=== PATIENT | male | born 1955 | race Caucasian/White ===

== ENCOUNTER → 2016-08-06 | Outpatient (CLI) | payer BC, OTHER ==
[~2016-08-06] MED LIST: ASCA500 PO; ASPEC325 PO; BNC/20125 PO; GLC500 PO; LEVO150T48 PO; LEVO175T23 PO; MULT-506 PO; SIMV20TA2 PO
== END | disposition home or self-care (01) ==
LOC: C.CPL 16:56
PROVIDERS: ATTEND Orthopaedic Surgery Sports Medicine
DX: Z01.810 Encounter for preprocedural cardiovascular examination (principal)

== ENCOUNTER 2019-08-25 01:01 | Inpatient (IN) ==
[2019-08-25] MEDS ORDERED: SODIUM CHLORIDE 0.9% 1000ML 1,000 ML IV SCH (01:15)
[2019-08-25 01:35] LABS: Basophils # (auto) 0.01 K/uL (0-0.2); Basophils % (auto) 0.1 %; Eosinophils # (auto) 0.27 K/uL (0-0.5); Hematocrit (blood only) 35.2 % (42-52); Hemoglobin 11.9 g/dL (14.0-18.0); Immature Granulocytes # (auto) 0.01 K/uL (0.00-0.02); Immature Granulocytes % (auto) 0.1 %; Lymphocytes # (auto) 2.48 K/uL (1.2-3.4); Lymphocytes % (auto) 36.7 %; Mean Corpuscular Hemoglobin 29.2 pg (25-34); Mean Corpuscular Hgb Conc 33.8 g/dL (32-36); Mean Corpuscular Volume 86.5 fL (80-100); Mean Platelet Volume 9.7 fL (7.4-10.4); Monocytes # (auto) 0.52 K/uL (0.11-0.59); Monocytes % (auto) 7.7 %; Neutrophils # (auto) 3.46 K/uL (1.4-6.5); Neutrophils % (auto) 51.4 %; Platelet Count 215 K/uL (130-400); RDW Coefficient of Variation 13.1 % (11.5-14.5); RDW Standard Deviation 41.5 fL (36.4-46.3); Red Blood Count 4.07 M/uL (4.7-6.1); White Blood Count 6.75 K/uL (4.8-10.8)
[2019-08-25 01:56] LABS: Alanine Aminotransferase 23 U/L (12-78); Albumin Level 3.3 gm/dl (3.4-5.0); Aspartate Aminotransferase 11 U/L (15-37); BUN Creatinine Ratio 19.6 (10-20); Blood Urea Nitrogen 21 mg/dl (7-18); Calcium 8.4 mg/dl (8.5-10.1); Carbon Dioxide 28 mmol/L (21-32); Chloride 105 mmol/L (98-107); Creatinine Clr Calc Pharmacy 87.7 ml/min; Est GFR (African American) 84.3; Est GFR (Non-African American) 72.8; Glucose 148 mg/dl (70-99); Lipase 126 U/L (73-393); Magnesium 1.9 mg/dl (1.8-2.4); Potassium 3.3 mmol/L (3.5-5.1); Sodium 138 mmol/L (136-145)
[2019-08-25 02:07] LABS: Albumin Globulin Ratio 1.1 (0.9-2); Alkaline Phosphatase 59 U/L (45-117); Bilirubin,Total 0.5 mg/dl (0.2-1); Globulin 2.9 gm/dl (2.5-4.0); Total Protein 6.2 gm/dl (6.4-8.2); Troponin I < 0.015 ng/ml (0-0.045)
[2019-08-25] MEDS ORDERED: PANTOprazole 80 MG in DEXTROSE 5% 100 ML IV ONE (03:45)
[2019-08-25] MEDS ORDERED: PANTOprazole 40 MG in DEXTROSE 5% 100 ML IV SCH ×2 (04:00→10:00)
[2019-08-25 04:26] LABS: Appearance Urine Clear (Clear); Bilirubin Urine Negative (Negative); Blood Urine Negative (Negative); Color Urine Yellow; Glucose Urine UA Negative (Negative); Ketones Urine Negative (Negative); Leukocyte Esterase Urine Negative (Negative); Nitrite Urine Negative (Negative); Protein Urine Negative (Negative); Specific Gravity Urine 1.022 (1.000-1.030); Urobilinogen Urine Negative (Negative); pH Urine 5.5 (4.5-7.5)
--- NOTE | 2019-08-25 04:47 | Emergency Department Note ---
Entered by Karol Forrester acting as a scribe for Tami Eagle DO History of Present Illness General Chief complaint: Syncope Stated complaint: SYNCOPE Time Seen by Provider: 08/25/19 01:03 Source: patient Mode of arrival: EMS History of Present Illness Provider complaint: syncope Onset (ago): hour(s) 2 Location: head Pain Consistency: + other (episodes) Relieved By: + none Exacerbated By: + none Associated symptoms: + diaphoresis and + other (+diarrhea) The patient is a 64 year old male who presents to the Emergency Room with complaints of two consecutive syncopal episodes tonight at 2330. The patient notes that he felt fine throughout the day. He states that he had an episode of diarrhea tonight and when he got up he was diaphoretic. He notes that he walked to his bed and fell. He reports that he had another episode shortly after he got up. The patient notes that he hit his head during his first episode. He mentions that he has been experiencing diarrhea for the past several days. He mentions that his diarrhea is dark. The patient states that he had a recent colonoscopy which was normal. He mentions that he has a history of diabetes, hypertension, and hypothyroidism. He notes that he takes Metformin. He denies being on any blood thinners. Home Medications Home Medications Medication Instructions Recorded Confirmed Type amlodipine 10 mg PO DAILY 08/25/19 08/25/19 History ascorbic acid (vitamin C) 1 g PO DAILY 08/25/19 08/25/19 History aspirin 81 mg PO DAILY 08/25/19 08/25/19 History atorvastatin 40 mg PO DAILY 08/25/19 08/25/19 History calcium carbonate-vitamin D3 1 cap PO DAILY 08/25/19 08/25/19 History [Calcium 600 + D(3)] ibuprofen 600 mg PO Q6H PRN 08/25/19 08/25/19 History levothyroxine [Levoxyl] 175 mcg PO DAILY 08/25/19 08/25/19 History losartan-hydrochlorothiazide 1 tab PO DAILY 08/25/19 08/25/19 History metformin 1,000 mg PO QPM 08/25/19 08/25/19 History metformin 500 mg PO QAM 08/25/19 08/25/19 History multivitamin 1 tab PO DAILY 08/25/19 08/25/19 History Allergies Allergy/AdvReac Type Severity Reaction Status Date / Time No Known Allergies Allergy Unknown Verified 08/25/19 02:32 Past Med/Surg History Medical History Diabetes Hypertension Hyperthyroidism Social History Preferred Language: Italian Feels Safe at Home: Yes Smoking Status: Never smoker Review of Systems See HPI for pertinent positives & negatives. and A total of 10 systems reviewed and were otherwise negative Physical Exam Vital Signs Vital Signs - 24 hr 08/25/19 01:04 08/25/19 01:13 08/25/19 01:17 Temperature 36.6 C Temperature Source Oral Pulse Rate 86 82 85 Pulse Rate [Finger] Pulse Rate from SpO2 Sensor Pulse Rhythm [Finger] Pulse Strength [Finger] Respiratory Rate 13 11 L 18 Respiratory Effort / Characteristics Respiratory Depth Respiratory Pattern Blood Pressure 125/71 125/71 Blood Pressure [Right Arm] Blood Pressure Mean 79 89 Blood Pressure Mean [Right Arm] Blood Pressure Position [Right Arm] Pulse Oximetry 96 Oxygen Delivery Method Room Air Sepsis Recent Fever Within 48 Hours No Sepsis New/Unexplained Change in Mental Status No Sepsis Action Taken by Nursing No Action Required 08/25/19 01:20 08/25/19 01:30 08/25/19 01:41 Temperature Temperature Source Pulse Rate 83 87 90 Pulse Rate [Finger] Pulse Rate from SpO2 Sensor 83 87 87 Pulse Rhythm [Finger] Pulse Strength [Finger] Respiratory Rate 11 L 11 L 16 Respiratory Effort / Characteristics Respiratory Depth Respiratory Pattern Blood Pressure 111/72 Blood Pressure [Right Arm] Blood Pressure Mean 81 Blood Pressure Mean [Right Arm] Blood Pressure Position [Right Arm] Pulse Oximetry 95 95 97 Oxygen Delivery Method Sepsis Recent Fever Within 48 Hours Sepsis New/Unexplained Change in Mental Status Sepsis Action Taken by Nursing 08/25/19 01:50 08/25/19 02:00 08/25/19 02:10 Temperature Temperature Source Pulse Rate 88 92 H 91 H Pulse Rate [Finger] Pulse Rate from SpO2 Sensor 87 93 H 90 Pulse Rhythm [Finger] Pulse Strength [Finger] Respiratory Rate 14 13 13 Respiratory Effort / Characteristics Respiratory Depth Respiratory Pattern Blood Pressure 135/80 Blood Pressure [Right Arm] Blood Pressure Mean 91 Blood Pressure Mean [Right Arm] Blood Pressure Position [Right Arm] Pulse Oximetry 95 95 96 Oxygen Delivery Method Sepsis Recent Fever Within 48 Hours Sepsis New/Unexplained Change in Mental Status Sepsis Action Taken by Nursing 08/25/19 02:20 08/25/19 03:30 Temperature Temperature Source Pulse Rate 93 H Pulse Rate [Finger] 91 H Pulse Rate from SpO2 Sensor 93 H Pulse Rhythm [Finger] Regular Pulse Strength [Finger] Normal Respiratory Rate 21 18 Respiratory Effort / Characteristics Non-Labored Spontaneous Respiratory Depth Normal Respiratory Pattern Regular Blood Pressure Blood Pressure [Right Arm] 111/78 Blood Pressure Mean Blood Pressure Mean [Right Arm] 89 Blood Pressure Position [Right Arm] Lying Pulse Oximetry 95 93 Oxygen Delivery Method Room Air Sepsis Recent Fever Within 48 Hours Sepsis New/Unexplained Change in Mental Status Sepsis Action Taken by Nursing HEENT: Head - normocephalic and atraumatic Pupils are equal, round, and reactive to light. Extraocular eye muscles are intact, and sclera are anicteric. Nose - moist nasal mucosa without discharge. Mouth - moist buccal mucosa. Oropharynx is nonerythematous and there is no tonsillar exudate or edema noted. Neck: Supple; no JVD, nuchal rigidity, cervical lymphadenopathy. Heart: Regular rate and rhythm. There is a normal S1 and S2 with no murmurs, clicks, or gallops appreciated. Lungs: Clear to auscultation bilaterally with no wheezes, rales, or rhonchi. Abdomen: Soft, completely nontender, nondistended, with good bowel sounds. There are no palpable pulsatile masses or hepatosplenomegaly. There is no guarding, rigidity, or rebound noted. Extremities: No evidence of cyanosis, clubbing, or edema. There are easily palpable peripheral pulses. Rectal: Black stool, melena, and bright red blood. Skin: warm and dry with good turgor and no rashes. Course Course 0105: The patient was evaluated in room A11B, and a complete history and physical examination were performed. An order was placed for continuous cardiac monitoring. He was in a normal sinus rhythm at a rate of 88. An IV lock was initiated and labs were drawn as above. A twelve-lead EKG was obtained. 0123: Sodium chloride 1000 mls @ 999 mls/hr IV. 0155: I reevaluated the patient and updated him on some results. I performed a rectal exam on the patient at this time. 0222: I reviewed the results of the rest of the labs with the patient. I reviewed the patient's case with Dr. Isabel [facility] Hospitalist. He will evaluate the patient for further management. Administered Medications Pantoprazole Sodium 40 mg/ (Dextrose) 100 mls @ 20 mls/hr IV Q5H PEDRO Stop: 08/25/19 08:59 Last Admin: 08/25/19 04:16 Dose: 20 mls/hr Documented by: [id number] Discontinued Medications Sodium Chloride (Nss 1000ml) 1,000 mls @ 999 mls/hr IV .Q1H1M PEDRO Stop: 08/25/19 02:15 Last Infusion: 08/25/19 02:59 Dose: 0 mls/hr Documented by: [id number] Admin: 08/25/19 01:23 Dose: 999 mls/hr Documented by: [id number] Pantoprazole Sodium 80 mg/ (Dextrose) 120 mls @ 480 mls/hr IV NOW ONE Stop: 08/25/19 03:59 Last Infusion: 08/25/19 04:15 Dose: 0 mls/hr Documented by: [id number] Admin: 08/25/19 03:58 Dose: 480 mls/hr Documented by: [id number] Medical Decision Making Differential Diagnosis Differential diagnoses include but are not limited to orthostasis, enteritis, food borne illness, dehydration, and cardiac dysrhythmia. Medical Records Attestation: I reviewed the patient's medical records. Home Medications Current Medication List: was personally reviewed by me Laboratory Data Attestation: I reviewed the patient's lab results. Result diagrams: 08/25/19 01:24 08/25/19 01:24 Lab Results 08/25/19 08/25/19 08/25/19 Range/Units 01:24 01:24 03:40 WBC 6.75 (4.8-10.8) K/uL RBC 4.07 L (4.7-6.1) M/uL Hgb 11.9 L (14.0-18.0) g/dL Hct 35.2 L (42-52) % MCV 86.5 (80-100) fL MCH 29.2 (25-34) pg MCHC 33.8 (32-36) g/dL RDW Std Deviation 41.5 (36.4-46.3) fL RDW Coeff of Bruno 13.1 (11.5-14.5) % Plt Count 215 (130-400) K/uL MPV 9.7 (7.4-10.4) fL Immature Gran % (Auto) 0.1 % Neut % (Auto) 51.4 % Lymph % (Auto) 36.7 % [place] % (Auto) 7.7 % Eos % (Auto) 4.0 % Baso % (Auto) 0.1 % Immature Gran # (Auto) 0.01 (0.00-0.02) K/uL Neut # (Auto) 3.46 (1.4-6.5) K/uL Lymph # (Auto) 2.48 (1.2-3.4) K/uL [place] # (Auto) 0.52 (0.11-0.59) K/uL Eos # (Auto) 0.27 (0-0.5) K/uL Baso # (Auto) 0.01 (0-0.2) K/uL Sodium 138 (136-145) mmol/L Potassium 3.3 L (3.5-5.1) mmol/L Chloride 105 (98-107) mmol/L Carbon Dioxide 28 (21-32) mmol/L Anion Gap 5.0 (3-11) BUN 21 H (7-18) mg/dl Creatinine 1.06 (0.6-1.4) mg/dl Est Cr Clr Drug Dosing 87.7 ml/min Est GFR ( Amer) 84.3 Est GFR (Non-Af Amer) 72.8 BUN/Creatinine Ratio 19.6 (10-20) Glucose 148 H (70-99) mg/dl Calcium 8.4 L (8.5-10.1) mg/dl Magnesium 1.9 (1.8-2.4) mg/dl Total Bilirubin 0.5 (0.2-1) mg/dl AST 11 L (15-37) U/L ALT 23 (12-78) U/L Alkaline Phosphatase 59 (45-117) U/L Troponin I < 0.015 (0-0.045) ng/ml Total Protein 6.2 L (6.4-8.2) gm/dl Albumin 3.3 L (3.4-5.0) gm/dl Globulin 2.9 (2.5-4.0) gm/dl Albumin/Globulin Ratio 1.1 (0.9-2) Lipase 126 (73-393) U/L TSH 3.860 (0.300-4.500) uIu/ml Urine Color Yellow Urine Appearance Clear (Clear) Urine pH 5.5 (4.5-7.5) Ur Specific [place] 1.022 (1.000-1.030) Urine Protein Negative (Negative) Urine Glucose (UA) Negative (Negative) Urine Ketones Negative (Negative) Urine Blood Negative (Negative) Urine Nitrite Negative (Negative) Urine Bilirubin Negative (Negative) Urine Urobilinogen Negative (Negative) Ur Leukocyte Esterase Negative (Negative) ECG Data Attestation: I personally reviewed and interpreted this ECG as follows: Indication: + syncope Rate (beats per minute): 82 Rhythm: + normal sinus ECG Intervals/blocks: + Prolonged QT (518) ECG ST segments: + ST depression (lead 1, avl, v3, v4, v5, v6) Comparison ECG Date: from (08/06/16) Change: the following changes noted (significant longer QT and changes in ST depression are new) Blood Pressure Blood Pressure Findings: Elevated blood pressure Blood Pressure Disposition: Referred to patients primary care provider MDM Narrative The patient is a 64 year old male who presents to the Emergency Room with complaints of two consecutive syncopal episodes tonight at 2330. This was thought to be secondary to orthostasis. However, the patient was noted to have GI bleeding. He was having some diarrhea that was black and when I tested his stool there was melena and then bright red blood. Of note, the patient had ST segment depression on his EKG which was a new finding compared to 2017. He also had a prolonged QTC at 518 seconds which was new. I reviewed these findings with the patient and his as well as with the [facility] hospitalist. The patient remained hemodynamically stable while here in the emergency department. He has no previous cardiac history. He has had previous colonoscopies with a history of diverticulosis but no previous history of diverticulitis. Impression & Plan Syncope, GI bleed, Acute electrocardiography changes Discharge Plan Visit Data Chief Complaint: Syncope Stated Complaint: SYNCOPE ED Provider: Tami Eagle Discharge Problem: Syncope, GI bleed, Acute electrocardiography changes Patient Disposition: Being Evaluated by Hospitalist Forms Stand Alone Forms: My [facility] [place] [facility] Prescriptions Prescriptions: No Action atorvastatin 40 mg tablet 40 mg PO DAILY RF: 0 levothyroxine [Levoxyl] 175 mcg tablet 175 mcg PO DAILY RF: 0 amlodipine 10 mg tablet 10 mg PO DAILY RF: 0 losartan-hydrochlorothiazide 50-12.5 mg tablet 1 tab PO DAILY RF: 0 multivitamin Tablet 1 tab PO DAILY RF: 0 ascorbic acid (vitamin C) 1,000 mg Tablet 1 g PO DAILY RF: 0 aspirin 81 mg Tablet,Delayed Release (Dr/Ec) 81 mg PO DAILY RF: 0 ibuprofen 600 mg Tablet 600 mg PO Q6H PRN (Reason: Pain) RF: 0 metformin 500 mg tablet extended release 24 hr 1,000 mg PO QPM RF: 0 metformin 500 mg tablet extended release 24 hr 500 mg PO QAM RF: 0 Calcium 600 + D(3) 600 mg calcium- 200 unit Capsule 1 cap PO DAILY RF: 0 Referrals Referrals: La Hernandez DO [Primary Care Provider] - Discharge Problem: Syncope Qualifiers: Syncope type: unspecified Qualified Code(s): R55 - Syncope and collapse GI bleed Qualifiers: GI bleed type/associated pathology: unspecified gastrointestinal hemorrhage type Qualified Code(s): K92.2 - Gastrointestinal hemorrhage, unspecified The scribe's documentation has been prepared under my direction and personally reviewed by me in its entirety. I confirm that the note above accurately reflects all work, treatment, procedures, and medical decision making performed by me.
[2019-08-25] MEDS ORDERED: POTASSIUM CHLORIDE 20 MEQ/15 ML UDC PO STA (06:42)
[2019-08-25] MEDS ORDERED: NITROGLYCERIN SL 0.4 MG/TAB TAB SL PRN (06:42)
[2019-08-25] MEDS ORDERED: POTASSIUM CHLORIDE 20 MEQ TABCR PO STA (07:50)
--- NOTE | 2019-08-25 07:58 | History and Physical Report ---
DATE OF ADMISSION: 08/25/2019 CHIEF COMPLAINT: Melena and syncope. HISTORY OF PRESENT ILLNESS: A 64-year-old male with past medical history significant for type 2 diabetes, hypothyroidism, hyperlipidemia, testicular function, hypertension, obesity, arthritis of the knee on the left side, presents with melena and syncope. The patient states since Friday evening, he had a few of episodes of diarrhea with black stools. He thought it could be from the food related. His thought that he ate outside that could be food poisoning, but on Friday again he had a couple of episodes of melena and both the times in the late in the night around 11:00 p.m. went to bathroom moving his bowels and when he stood up, he passed out for a few seconds. After first episode of syncope he woke up, he was like sweaty and dizzy, feeling cold and went to sleep and again he had 1 more episode of diarrhea and the same thing happened and he called EMS and came here. His thinks water in the commode also looked pink. He is on aspirin and he also takes ibuprofen 600 mg in the morning and at night daily for many years for his arthritis of the lower extremities, but he does not have any abdominal pain, no nausea, no vomiting, no chest pain, no shortness of breath, no cough, no fever, no chills, no headache, no blurred vision, no earache, no runny nose, no sore throat. His appetite is okay. No dysphagia, no odynophagia. Currently resting comfortably and hemodynamically stable. ALLERGIES: No known drug allergies. PAST MEDICAL HISTORY: As mentioned above. PAST SURGICAL HISTORY: Right total knee arthroplasty in 2003, colonoscopy, right knee arthroscopy, neck spine fusion in 1999, tonsillectomy, adenoidectomy, left shoulder arthroscopy in 2017. MEDICATIONS: The patient is on amlodipine 10 mg p.o. daily, Lipitor 40 mg p.o. daily, levothyroxine 175 mcg daily, metformin 1000 mg p.m. and 500 mg p.o. q.a.m., Motrin 600 mg p.o. b.i.d., Hyzaar 50/12.5 mg p.o. daily, calcium with vitamin D 1 tablet daily, aspirin 81 mg p.o. daily, multivitamin 1 tablet p.o. daily, ascorbic acid 1 gram p.o. daily. FAMILY HISTORY: Significant for mother has CHF. SOCIAL HISTORY: and lives with his . No smoking, no alcohol, no drug use. REVIEW OF SYMPTOMS: As per HPI. Rest of the systems are negative. PHYSICAL EXAMINATION: GENERAL: The patient is of moderate build, not in acute distress. VITAL SIGNS: Temperature 36.6, pulse 93, respiratory rate 21, blood pressure 135/80, oxygen 94% on room air. HEENT: No pallor, no icterus. Pupils equal, round, reactive to light. NECK: No JVD, no neck masses, no carotid bruits. CARDIOVASCULAR: S1, S2 heard, regular rate and rhythm, no murmur, no gallop. RESPIRATORY SYSTEM: Normal AP diameter. No accessory muscle use. No wheezing, no crackles. ABDOMEN: Soft, bowel sounds present, nontender. No distention. CENTRAL NERVOUS SYSTEM: Cranial nerves II-XII grossly intact. Nonfocal. EXTREMITIES: No edema, no erythema. LABORATORY DATA: WBC 6.7, hemoglobin 11.9, hematocrit 35.2, platelets 215. Sodium 138, potassium 3.3, chloride 105, bicarbonate 28, BUN 21, creatinine 1.06, serum glucose 140, calcium 8.4, magnesium 1.8, total bilirubin 0.5, AST 11, ALT 23, alkaline phosphatase 59. Troponin I less than 0.015. Lipase 136. TSH 3.8. EKG: Normal sinus rhythm with rate of 82, incomplete right bundle branch block, nonspecific ST abnormalities, prolonged QT of 518. ASSESSMENT AND PLAN: A 64-year-old male who presents with syncope and melena. 1. Melena and rectal bleed since last Friday, 2 episodes of diarrhea with melena on Friday and also on Friday when moving his bowels he had syncope. Hemoglobin is 11.9. Hemoccult was positive in the ER. We will keep him n.p.o., IV fluids, normal saline at 125 mL per hour, IV Protonix drip. Consult GI and also will follow stool cultures, stool for C. diff. H and H q.6 hours, got blood consent form. 2. Syncope, possible from the above, but EKG shows some changes with prolonged QTC and nonspecific ST abnormalities and incomplete branch block. We will follow serial cardiac enzymes, echocardiogram and consult cardiology for further recommendations. 3. Hypokalemia, will replace. 4. Diabetes. Hold metformin, place insulin sliding scale. 5. Hypertension, on Norvasc and Hyzaar with holding parameters. 6. Hypothyroidism, on Synthroid. 7. Hyperlipidemia. Continue statin. 8. Chronic pain ..Will advise about not taking nsaids for longer duration 9. Deep venous thrombosis prophylaxis, sequential compression devices. DISPOSITION: Closely monitor in tele floor. Level 1 full code. MTDD
[2019-08-25 08:00] LABS: Hematocrit (blood only) 31.3 % (42-52); Hemoglobin 10.9 g/dL (14.0-18.0)
[2019-08-25] MEDS ORDERED: POTASSIUM CHLORIDE 20 MEQ TABCR PO ONE (08:00)
[2019-08-25 08:10] LABS: Partial Thromboplastin Ratio 0.9; Partial Thromboplastin Time 23.1 Seconds (21.0-31.0); Prothrombin Time 10.7 Seconds (9.0-12.0)
[2019-08-25] MEDS: ATORVASTATIN 40 MG TAB PO SCH (08:26)
[2019-08-25] MEDS: AMLODIPINE BESYLATE 5 MG TAB PO SCH (08:29)
[2019-08-25] MEDS: LOSARTAN/HCTZ 50/12.5MG TAB PO SCH (08:30)
[2019-08-25] MEDS: LEVOTHYROXINE SODIUM 175 MCG TABLET PO SCH (08:31)
[2019-08-25] MEDS: INSULIN ASPART 100 UNITS/ML 3 ML PEN SC SCH ×4 (08:31→21:30)
[2019-08-25] MEDS: SODIUM CHLORIDE 0.9% 1000ML 1,000 ML IV SCH ×2 (08:32→17:27)
--- NOTE | 2019-08-25 10:30 | Cardiology Consultation ---
Date of Consultation August 25, 2019 Assessment & Plan (1) Syncope: Given the clinical presentation I believe this represents a classic episode of orthostatic syncope also with a possible vasovagal component. Given the current clinical context I believe this is explained by combination of the active GI bleed along with orthostasis and volume depletion in a patient who is on multiple antihypertensives. No significant arrhythmias present on telemetry since admission 2D echocardiogram preliminary reviewed without significant abnormality. Recommend volume repletion along with GI work-up for his active bleed. (2) GI bleed: Patient has a longstanding history of chronic NSAID use For endoscopy today and possibly colonoscopy down the road The patient and his are counseled that I would place him as a low to moderate risk for any adverse perioperative cardiovascular event during his above procedures with the risk of an adverse event of approximately less than 5%. They were further counseled that no further cardiac testing or intervention would further lower that risk. They both state that they understand, they are accepting of this risk and wish to proceed with the procedures. I have no cardiac contraindication to proceeding at this time. (3) RBBB: EKG from 2015 does show an incomplete right bundle branch block Given lack of structural abnormalities on echocardiogram this is not a si gnificant finding. (4) Prolonged QT interval: His QT is significantly prolonged however he has no history of syncope nor any family history of sudden cardiac . This is possibly worsened by his active bleed and hypokalemia. Given the fact there is no structural abnormalities on his echocardiogram we will complete a work-up as an outpatient to include outpatient telemetry monitoring and possibly initiation of beta-blockade, but again, this will be done as an outpatient and should not delay his active GI bleed work-up (5) Hypokalemia: Has received supplementation Continue to follow Consideration could be given to discontinuation of his outpatient HCTZ History of Present Illness Reason for Consultation: Syncope and prolonged QT interval Requesting Physician: Dr. Cardoso Attending Physician: Vibha Sales, History of Present Illness It was my pleasure to see Mr. Devi in consultation today August 25, 2019. 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 He presented to [facility] early in the a.m. of 08/25/2019 with reports of a syncopal spell x2. The patient states he was in his normal state of health up until the day prior to presentation. He started having some GI upset and after going to bed that evening he had to get up to have a bowel movement urgently. When he moved his bowels there was meredith blood and dark melenic stools and then when he stood up he was able to take a few steps before he started getting very lightheaded. He became very lightheaded and diaphoretic and weak. He lost consciousness for a second and fell forward without hurting himself into the bedroom. His states that he was only unconscious for a second or 2 and she then helped him to bed. He then laid down and was feeling better however, he then had to have another bowel movement approximately 20 minutes later again when he stood up from the bed he walked into the bathroom and had a recurrent episode upon standing. During these events he denied experiencing any concomitant chest pain or palpitations. He denies any previously similar episodes. He states that is never syncopized previously in his life. And he denies any premature sudden cardiac in his family. Allergies Allergy/AdvReac Type Severity Reaction Status Date / Time No Known Allergies Allergy Unknown Verified 08/25/19 02:32 Home Medications Home Medications Medication Instructions Recorded Confirmed Type amlodipine 10 mg PO DAILY 08/25/19 08/25/19 History ascorbic acid (vitamin C) 1 g PO DAILY 08/25/19 08/25/19 History aspirin 81 mg PO DAILY 08/25/19 08/25/19 History atorvastatin 40 mg PO DAILY 08/25/19 08/25/19 History calcium carbonate-vitamin D3 1 cap PO DAILY 08/25/19 08/25/19 History [Calcium 600 + D(3)] ibuprofen 600 mg PO Q6H PRN 08/25/19 08/25/19 History levothyroxine [Levoxyl] 175 mcg PO DAILY 08/25/19 08/25/19 History losartan-hydrochlorothiazide 1 tab PO DAILY 08/25/19 08/25/19 History metformin 1,000 mg PO QPM 08/25/19 08/25/19 History metformin 500 mg PO QAM 08/25/19 08/25/19 History multivitamin 1 tab PO DAILY 08/25/19 08/25/19 History Patient History Medical History Diabetes Hypertension Hyperthyroidism Social History Preferred Language: Iranian Supervisor Photocomposition Required: No Beliefs That Will Affect Care: None Current Living Situation: Spouse Feels Safe at Home: Yes Safety Concerns: Feels Safe At This Time Smoking Status: Never smoker Hx Alcohol Use: No Hx Substance Use: No Review of Systems Review of Systems: All systems reviewed & are unremarkable except as noted in HPI & below Physical Exam Physical Exam: General: Awake, alert and oriented x 3. No acute distress. HEENT: Normocephalic, atraumatic. Pupils equal, round and reactive to light and accommodation. Extraocular muscles are intact. Anicteric sclera. Moist mucous membranes. Neck: No JVD. No bruit. Cardiovascular: Regular. Positive S-4. Normal S-1 and S-2. No S-3. No murmurs or rubs. Pulmonary: Clear to auscultation B/L. No rales, rhonchi or wheezing Abdomen: Bowel sounds x 4, soft. No rebound, guarding or tenderness. No organomegaly. Extremities: No clubbing, cyanosis or edema. +2 pedal pulses bilaterally. Skin: Warm and dry. Results & Data ([facility]) Vital Signs (Past 12 Hours) Vital Signs Temp Pulse Pulse Resp BP BP Pulse Ox 08/25/19 08:34 36.5 C 08/25/19 06:44 36.7 C 102 H 20 103/70 99 08/25/19 05:30 99 H 19 121/72 96 08/25/19 03:30 91 H 18 111/78 93 08/25/19 02:20 93 H 21 95 08/25/19 02:10 91 H 13 96 08/25/19 02:00 92 H 13 135/80 95 08/25/19 01:50 88 14 95 08/25/19 01:41 90 16 97 08/25/19 01:30 87 11 L 111/72 95 08/25/19 01:20 83 11 L 95 08/25/19 01:17 36.6 C 85 18 125/71 96 08/25/19 01:13 82 11 L 08/25/19 01:04 86 13 125/71 Laboratory Results Laboratory Results - last 24 hr 08/25/19 08/25/1908/25/20 01:24 01:24 03:40 WBC 6.75 RBC 4.07 L Hgb 11.9 L Hct 35.2 L MCV 86.5 MCH 29.2 MCHC 33.8 RDW Std Deviation 41.5 RDW Coeff of Bruno 13.1 Plt Count 215 MPV 9.7 Immature Gran % (Auto) 0.1 Neut % (Auto) 51.4 Lymph % (Auto) 36.7 [place] % (Auto) 7.7 Eos % (Auto) 4.0 Baso % (Auto) 0.1 Immature Gran # (Auto) 0.01 Neut # (Auto) 3.46 Lymph # (Auto) 2.48 [place] # (Auto) 0.52 Eos # (Auto) 0.27 Baso # (Auto) 0.01 PT INR APTT PTT Ratio Sodium 138 Potassium 3.3 L Chloride 105 Carbon Dioxide 28 Anion Gap 5.0 BUN 21 H Creatinine 1.06 Est Cr Clr Drug Dosing 87.7 Est GFR ( Amer) 84.3 Est GFR (Non-Af Amer) 72.8 BUN/Creatinine Ratio 19.6 Glucose 148 H POC Glucose Calcium 8.4 L Magnesium 1.9 Total Bilirubin 0.5 AST 11 L ALT 23 Alkaline Phosphatase 59 Troponin I < 0.015 Total Protein 6.2 L Albumin 3.3 L Globulin 2.9 Albumin/Globulin Ratio 1.1 Lipase 126 TSH 3.860 Urine Color Yellow Urine Appearance Clear Urine pH 5.5 Ur Specific [place] 1.022 Urine Protein Negative Urine Glucose (UA) Negative Urine Ketones Negative Urine Blood Negative Urine Nitrite Negative Urine Bilirubin Negative Urine Urobilinogen Negative Ur Leukocyte Esterase Negative Stool Comments 08/25/19 08/25/19 08/25/19 03:40 07:34 07:45 WBC RBC Hgb 10.9 L Hct 31.3 L MCV MCH MCHC RDW Std Deviation RDW Coeff of Bruno Plt Count MPV Immature Gran % (Auto) Neut % (Auto) Lymph % (Auto) [place] % (Auto) Eos % (Auto) Baso % (Auto) Immature Gran # (Auto) Neut # (Auto) Lymph # (Auto) [place] # (Auto) Eos # (Auto) Baso # (Auto) PT INR APTT PTT Ratio Sodium Potassium Chloride Carbon Dioxide Anion Gap BUN Creatinine Est Cr Clr Drug Dosing Est GFR ( Amer) Est GFR (Non-Af Amer) BUN/Creatinine Ratio Glucose POC Glucose 158 H Calcium Magnesium Total Bilirubin AST ALT Alkaline Phosphatase Troponin I Total Protein Albumin Globulin Albumin/Globulin Ratio Lipase TSH Urine Color Urine Appearance Urine pH Ur Specific [place] Urine Protein Urine Glucose (UA) Urine Ketones Urine Blood Urine Nitrite Urine Bilirubin Urine Urobilinogen Ur Leukocyte Esterase Stool Comments Pending 08/25/19 08/25/19 07:45 07:45 WBC RBC Hgb Hct MCV MCH MCHC RDW Std Deviation RDW Coeff of Bruno Plt Count MPV Immature Gran % (Auto) Neut % (Auto) Lymph % (Auto) [place] % (Auto) Eos % (Auto) Baso % (Auto) Immature Gran # (Auto) Neut # (Auto) Lymph # (Auto) [place] # (Auto) Eos # (Auto) Baso # (Auto) PT 10.7 INR 1.0 APTT 23.1 PTT Ratio 0.9 Sodium Potassium Chloride Carbon Dioxide Anion Gap BUN Creatinine Est Cr Clr Drug Dosing Est GFR ( Amer) Est GFR (Non-Af Amer) BUN/Creatinine Ratio Glucose POC Glucose Calcium Magnesium Total Bilirubin AST ALT Alkaline Phosphatase Troponin I < 0.015 Total Protein Albumin Globulin Albumin/Globulin Ratio Lipase TSH Urine Color Urine Appearance Urine pH Ur Specific [place] Urine Protein Urine Glucose (UA) Urine Ketones Urine Blood Urine Nitrite Urine Bilirubin Urine Urobilinogen Ur Leukocyte Esterase Stool Comments Medications Administered Current Inpatient Medications Amlodipine Besylate (Norvasc) 10 mg PO DAILY [facility] Stop: 09/24/19 08:59 Last Admin: 08/25/19 08:29 Dose: 10 mg Documented by: Atorvastatin Calcium (Lipitor) 40 mg PO DAILY [facility] Stop: 09/24/19 08:59 Last Admin: 08/25/19 08:26 Dose: Not Given Documented by: HCTZ/Losartan Potassium (Hyzaar 50/12.5mg) 1 tab PO DAILY [facility] Stop: 09/24/19 08:59 Last Admin: 08/25/19 08:30 Dose: 1 tab Documented by: Sodium Chloride (Nss 1000ml) 1,000 mls @ 125 mls/hr IV .Q8H [facility] Stop: 09/24/19 06:41 Last Admin: 08/25/19 08:32 Dose: 125 mls/hr Documented by: Pantoprazole Sodium 40 mg/ (Dextrose) 100 mls @ 20 mls/hr IV Q5H [facility] Stop: 09/24/19 09:59 Insulin Aspart (Novolog Flexpen) 0 units SC ACHS PEDRO Stop: 09/24/19 07:29 Last Admin: 08/25/19 08:31 Dose: 1 units Documented by: Levothyroxine Sodium (Synthroid) 175 mcg PO DAILYBB [facility] Stop: 09/24/19 06:59 Last Admin: 08/25/19 08:31 Dose: 175 mcg Documented by: Nitroglycerin (Nitrostat) 0.4 mg SL UD PRN PRN Reason: Chest Pain Stop: 09/24/19 06:41 (1) Syncope Syncope type: unspecified Qualified Code(s): R55 - Syncope and collapse (2) GI bleed GI bleed type/associated pathology: unspecified gastrointestinal hemorrhage type Qualified Code(s): K92.2 - Gastrointestinal hemorrhage, unspecified
--- NOTE | 2019-08-25 11:10 | Gastrointestinal Consultation ---
Date of Consultation August 25, 2019 Assessment & Plan (1) Melena: (2) Anemia: Pt is a 64 y/o male who presented w melena x 2 days, syncope last night while having BMs, noted to be anemic on presentation. 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 Suspect likely has PUD bleed. - PPI bolus given, continue PPI gtt - Keep NPO. Plan for EGD evaluation pending clearance by Cardiology given EKG changes. - Will give further recs after EGD is completed. Attg add: I interviewed and examined pt, reviewed chart and labs. Pt with h/o NSAID use, now with anemia, melena, syncope. Suspect PUD. Plan EGD today. History of Present Illness Reason for Consultation: Anemia, melena Requesting Physician: Dr. Vibha Sales Attending Physician: Dr. Rudy Burdick History of Present Illness Pt is a 64 y/o male w PMHx as noted below who presented with c/o black bloody stools since Friday. He felt dizzy and light headed, had an episode of syncope yesterday evening when he was having bowel movements. He denies associated abd pain, n/v, CP, SOB. He denies sick exposure, last traveled to [place] in June. He had been taking Ibuprofen 600mg BID x over a decade for arthritis pain. He denies using anti acids. Denies iron supplements or Peptobismol ingesti on recently. He is currently hemodynamically stable. Labs showed WBC 6.7, H/H 10.9/31, PT/INR 10.7/1, BUN/Cr 21/1.0. LFTs and Lipase normal. EKG on admission showed R bundle branch block. Cardiology planning on echocardiogram this AM. Colonoscopy 2017: sigmoid diverticulosis, adenomatous polyp Allergies Allergy/AdvReac Type Severity Reaction Status Date / Time No Known Allergies Allergy Unknown Verified 08/25/19 02:32 Home Medications Home Medications Medication Instructions Recorded Confirmed Type amlodipine 10 mg PO DAILY 08/25/19 08/25/19 History ascorbic acid (vitamin C) 1 g PO DAILY 08/25/19 08/25/19 History aspirin 81 mg PO DAILY 08/25/19 08/25/19 History atorvastatin 40 mg PO DAILY 08/25/19 08/25/19 History calcium carbonate-vitamin D3 1 cap PO DAILY 08/25/19 08/25/19 History [Calcium 600 + D(3)] ibuprofen 600 mg PO Q6H PRN 08/25/19 08/25/19 History levothyroxine [Levoxyl] 175 mcg PO DAILY 08/25/19 08/25/19 History losartan-hydrochlorothiazide 1 tab PO DAILY 08/25/19 08/25/19 History metformin 1,000 mg PO QPM 08/25/19 08/25/19 History metformin 500 mg PO QAM 08/25/19 08/25/19 History multivitamin 1 tab PO DAILY 08/25/19 08/25/19 History Patient History Medical History Diabetes Hypertension Hyperthyroidism Social History Preferred Language: Armenian Alarm Operator Required: No Beliefs That Will Affect Care: None Current Living Situation: Spouse Feels Safe at Home: Yes Safety Concerns: Feels Safe At This Time Smoking Status: Never smoker Do You Dip or Chew Tobacco: No ; Hx Alcohol Use: No Hx Substance Use: No Review of Systems Review of Systems: All systems reviewed & are unremarkable except as noted in HPI & below Physical Exam Constitutional: WD/WN, vitals as above well groomed, cooperative and comfortable Eyes: PERRL, conjunctivae normal, anicteric sclerae ENMT: external ear and nose normal, oropharynx normal Respiratory: normal respiratory effort, lungs clear to auscultation Cardiovascular: RRR, no murmur, no edema Gastrointestinal (Abdomen): normal bowel sounds, soft, nontender, no hepatosplenomegaly Skin: no rashes, warm and dry no jaundice Psychiatric: A+Ox3, euthymic affect Lymphatic: no lymphedema Results & Data ([facility]) Vital Signs (Past 12 Hours) Vital Signs Temp Pulse Pulse Resp BP BP Pulse Ox 08/25/19 08:34 36.5 C 08/25/19 06:44 36.7 C 102 H 20 103/70 99 08/25/19 05:30 99 H 19 121/72 96 08/25/19 03:30 91 H 18 111/78 93 08/25/19 02:20 93 H 21 95 08/25/19 02:10 91 H 13 96 08/25/19 02:00 92 H 13 135/80 95 08/25/19 01:50 88 14 95 08/25/19 01:41 90 16 97 08/25/19 01:30 87 11 L 111/72 95 08/25/19 01:20 83 11 L 95 08/25/19 01:17 36.6 C 85 18 125/71 96 08/25/19 01:13 82 11 L 08/25/19 01:04 86 13 125/71
--- NOTE | 2019-08-25 12:27 | Anesthesiology Consultation ---
Date of Service August 25, 2019 Assessment & Plan (1) Encounter for pre-operative examination: Chart Review Chart Review: Acceptable Risk for Surgery and Patient NOT seen in Pre Admission Testing cardiology consult: (1) Syncope: Given the clinical presentation I believe this represents a classic episode of orthostatic syncope also with a possible vasovagal component. Given the current clinical context I believe this is explained by combination of the active GI bleed along with orthostasis and volume depletion in a patient who is on multiple antihypertensives. No significant arrhythmias present on telemetry since admission 2D echocardiogram preliminary reviewed without significant abnormality. Recommend volume repletion along with GI work-up for his active bleed. (2) GI bleed: Patient has a longstanding history of chronic NSAID use For endoscopy today and possibly colonoscopy down the road The patient and his are counseled that I would place him as a low to moderate risk for any adverse perioperative cardiovascular event during his above procedures with the risk of an adverse event of approximately less than 5%. They were further counseled that no further cardiac testing or intervention would further lower that risk. They both state that they understand, they are accepting of this risk and wish to proceed with the procedures. I have no cardiac contraindication to proceeding at this time. Consults Requested none History Surgery Operation Date: 08/25/19 17:35 Proposed Procedures p Esophagogastroduodenoscopy Dr Lopez - Rudy Burdick Height/Weight Height: 6 ft 1 in Weight: 98.9 kg Allergies Allergy/AdvReac Type Severity Reaction Status Date / Time No Known Allergies Allergy Unknown Verified 08/25/19 02:32 Medications Home Medications Medication Instructions Recorded Confirmed Last Taken amlodipine 10 mg PO DAILY 08/25/19 08/25/19 08/24/19 ascorbic acid (vitamin C) 1 g PO DAILY 08/25/19 08/25/19 08/24/19 aspirin 81 mg PO DAILY 08/25/19 08/25/19 08/24/19 atorvastatin 40 mg PO DAILY 08/25/19 08/25/19 08/24/19 calcium carbonate-vitamin D3 1 cap PO DAILY 08/25/19 08/25/19 08/24/19 [Calcium 600 + D(3)] ibuprofen 600 mg PO Q6H PRN 08/25/19 08/25/19 08/24/19 levothyroxine [Levoxyl] 175 mcg PO DAILY 08/25/19 08/25/19 08/24/19 losartan-hydrochlorothiazide 1 tab PO DAILY 08/25/19 08/25/19 08/24/19 metformin 1,000 mg PO QPM 08/25/19 08/25/19 08/24/19 metformin 500 mg PO QAM 08/25/19 08/25/19 08/24/19 multivitamin 1 tab PO DAILY 08/25/19 08/25/19 08/24/19 Active Medications Generic Name Dose Route Start Last Admin Trade Name Thea PRN Reason Stop Dose Admin Amlodipine Besylate 10 mg 08/25/19 09:00 08/25/19 08:29 Norvasc PO 09/24/19 08:59 10 mg DAILY PEDRO Administration Atorvastatin Calcium 40 mg 08/25/19 09:00 08/25/19 08:26 Lipitor PO 09/24/19 08:59 Not Given DAILY PEDRO HCTZ/Losartan Potassium 1 tab 08/25/19 09:00 08/25/19 08:30 Hyzaar 50/12.5mg PO 09/24/19 08:59 1 tab DAILY PEDRO Administration Sodium Chloride 1,000 mls @ 125 mls/hr 08/25/19 06:42 08/25/19 08:32 Nss 1000ml IV 09/24/19 06:41 125 mls/hr .Q8H PEDRO Administration Pantoprazole Sodium 40 mg/ 100 mls @ 20 mls/hr 08/25/19 10:00 08/25/19 11:01 Dextrose IV 09/24/19 09:59 20 mls/hr Q5H PEDRO Administration Insulin Aspart 0 units 08/25/19 07:30 08/25/19 12:00 Novolog Flexpen SC 09/24/19 07:29 Not Given ACHS PEDRO Levothyroxine Sodium 175 mcg 08/25/19 07:00 08/25/19 08:31 Synthroid PO 09/24/19 06:59 175 mcg DAILYBB PEDRO Administration NPO Date Last Intake of Fluids: 08/24/19 Time Last Intake of Fluids: 19:30 Date Last Intake of Solids: 08/24/19 Time Last Intake of Solids: 18:00 Past Medical History Medical History Diabetes Hypertension Hyperthyroidism Exercise / Class Metabolic Activity II 4-5 Yardwork/Stairs/Walk up hill Past Surgical History knee replacement, shoulder surgeru, c spine fusion Past Anesthesia History No Hx of Anesthesia Complications and No Family Hx of Anesthesia Complications History of PONV No Hx of PONV and No Hx of Motion Sickness Social History Smoking Status: Never smoker Do You Dip or Chew Tobacco: No Hx Alcohol Use: No Hx Substance Use: No Physical Exam Vital Signs Last Vital Signs Temp 37.3 C 08/25/19 11:58 Pulse 100 H 08/25/19 11:58 Resp 18 08/25/19 11:58 BP 122/77 08/25/19 11:58 Pulse Ox 95 08/25/19 11:58 Testing Laboratory Results 08/25/19 07:45 08/25/19 01:24 PT 10.7 Seconds (9.0-12.0) 08/25/19 07:45 INR 1.0 (0.9-1.1) 08/25/19 07:45 APTT 23.1 Seconds (21.0-31.0) 08/25/19 07:45 Urine Color Yellow 08/25/19 03:40 Urine Appearance Clear (Clear) 08/25/19 03:40 Urine pH 5.5 (4.5-7.5) 08/25/19 03:40 Ur Specific [place] 1.022 (1.000-1.030) 08/25/19 03:40 Urine Protein Negative (Negative) 08/25/19 03:40 Urine Glucose (UA) Negative (Negative) 08/25/19 03:40 Urine Ketones Negative (Negative) 08/25/19 03:40 Urine Nitrite Negative (Negative) 08/25/19 03:40 Ur Leukocyte Esterase Negative (Negative) 08/25/19 03:40 08/25/19 08/25/19 11:32 07:34 POC Glucose 117 H 158 H Electrocardiogram Date: 08/25/19 Findings: + NSR @ (99) Normal sinus rhythm Right bundle branch block Abnormal ECG When compared with ECG of 25-AUG-2019 01:08, (unconfirmed) Right bundle branch block has replaced Incomplete right bundle branch block
--- NOTE | 2019-08-25 12:35 | Anesthesiology Consultation ---
Date of Service August 25, 2019 Assessment & Plan (1) Encounter for pre-operative examination: History Surgery Operation Date: 08/25/19 17:35 Proposed Procedures p Esophagogastroduodenoscopy Dr John Burdick Height/Weight Height: 6 ft 1 in Weight: 98.9 kg Allergies Allergy/AdvReac Type Severity Reaction Status Date / Time No Known Allergies Allergy Unknown Verified 08/25/19 02:32 Medications Home Medications Medication Instructions Recorded Confirmed Last Taken amlodipine 10 mg PO DAILY 08/25/19 08/25/19 08/24/19 ascorbic acid (vitamin C) 1 g PO DAILY 08/25/19 08/25/19 08/24/19 aspirin 81 mg PO DAILY 08/25/19 08/25/19 08/24/19 atorvastatin 40 mg PO DAILY 08/25/19 08/25/19 08/24/19 calcium carbonate-vitamin D3 1 cap PO DAILY 08/25/19 08/25/19 08/24/19 [Calcium 600 + D(3)] ibuprofen 600 mg PO Q6H PRN 08/25/19 08/25/19 08/24/19 levothyroxine [Levoxyl] 175 mcg PO DAILY 08/25/19 08/25/19 08/24/19 losartan-hydrochlorothiazide 1 tab PO DAILY 08/25/19 08/25/19 08/24/19 metformin 1,000 mg PO QPM 08/25/19 08/25/19 08/24/19 metformin 500 mg PO QAM 08/25/19 08/25/19 08/24/19 multivitamin 1 tab PO DAILY 08/25/19 08/25/19 08/24/19 Active Medications Generic Name Dose Route Start Last Admin Trade Name Freq PRN Reason Stop Dose Admin Amlodipine Besylate 10 mg 08/25/19 09:00 08/25/19 08:29 Norvasc PO 09/24/19 08:59 10 mg DAILY PEDRO Administration Atorvastatin Calcium 40 mg 08/25/19 09:00 08/25/19 08:26 Lipitor PO 09/24/19 08:59 Not Given DAILY PEDRO HCTZ/Losartan Potassium 1 tab 08/25/19 09:00 08/25/19 08:30 Hyzaar 50/12.5mg PO 09/24/19 08:59 1 tab DAILY PEDRO Administration Sodium Chloride 1,000 mls @ 125 mls/hr 08/25/19 06:42 08/25/19 08:32 Nss 1000ml IV 09/24/19 06:41 125 mls/hr .Q8H PEDRO Administration Pantoprazole Sodium 40 mg/ 100 mls @ 20 mls/hr 08/25/19 10:00 08/25/19 11:01 Dextrose IV 09/24/19 09:59 20 mls/hr Q5H PEDRO Administration Insulin Aspart 0 units 08/25/19 07:30 08/25/19 12:00 Novolog Flexpen SC 09/24/19 07:29 Not Given ACHS PEDRO Levothyroxine Sodium 175 mcg 08/25/19 07:00 08/25/19 08:31 Synthroid PO 09/24/19 06:59 175 mcg DAILYBB PEDRO Administration NPO Date Last Intake of Fluids: 08/24/19 Time Last Intake of Fluids: 19:30 Date Last Intake of Solids: 08/24/19 Time Last Intake of Solids: 18:00 Past Medical History Medical History Diabetes Hypertension Hyperthyroidism Social History Smoking Status: Never smoker Do You Dip or Chew Tobacco: No Hx Alcohol Use: No Hx Substance Use: No Physical Exam Vital Signs Last Vital Signs Temp 37.3 C 08/25/19 11:58 Pulse 100 H 08/25/19 11:58 Resp 18 08/25/19 11:58 BP 122/77 08/25/19 11:58 Pulse Ox 95 08/25/19 11:58 Testing Laboratory Results 08/25/19 07:45 08/25/19 01:24 PT 10.7 Seconds (9.0-12.0) 08/25/19 07:45 INR 1.0 (0.9-1.1) 08/25/19 07:45 APTT 23.1 Seconds (21.0-31.0) 08/25/19 07:45 Urine Color Yellow 08/25/19 03:40 Urine Appearance Clear (Clear) 08/25/19 03:40 Urine pH 5.5 (4.5-7.5) 08/25/19 03:40 Ur Specific [place] 1.022 (1.000-1.030) 08/25/19 03:40 Urine Protein Negative (Negative) 08/25/19 03:40 Urine Glucose (UA) Negative (Negative) 08/25/19 03:40 Urine Ketones Negative (Negative) 08/25/19 03:40 Urine Nitrite Negative (Negative) 08/25/19 03:40 Ur Leukocyte Esterase Negative (Negative) 08/25/19 03:40 08/25/19 08/25/19 11:32 07:34 POC Glucose 117 H 158 H Electrocardiogram Date: 08/25/19 Findings: + NSR @ (99) Normal sinus rhythm Right bundle branch block Abnormal ECG When compared with ECG of 25-AUG-2019 01:08, (unconfirmed) Right bundle branch block has replaced Incomplete right bundle branch block
[2019-08-25] MEDS ORDERED: LIDOCAINE HCL 2% 2 ML VIAL/AMP(20MG/ML) INFIL ONE (12:50)
[2019-08-25] MEDS ORDERED: fentaNYL citrate 100 MCG/2 ML VIAL ONE (12:50)
[2019-08-25] MEDS ORDERED: PROPOFOL IV EMULSION 10 MG/ML 20 ML VIAL IV ONE (12:50)
--- NOTE | 2019-08-25 13:18 | GI REPORT ---
Patient Name: Danish Devi Procedure Date: 08/25/2019 12:48 PM Date of : 1955 Admit Type: Inpatient Age: 64 Gender: Male Attending MD: Rudy Burdick MD Procedure: Upper GI endoscopy Providers: Rudy Burdick MD Referring MD: La Hernandez Indications: Melena Medicines: See the Anesthesia note for documentation of the administered medications Complications: No immediate complications. Estimated Blood Loss: Estimated blood loss: none. Procedure: Pre-Anesthesia Assessment: - ASA Grade Assessment: III - A patient with severe systemic disease. After obtaining informed consent, the endoscope was passed under direct vision. Throughout the procedure, the patient's blood pressure, pulse, and oxygen saturations were monitored continuously. The Endoscope was introduced through the mouth, and advanced to the second part of duodenum. The upper GI endoscopy was accomplished without difficulty. The patient tolerated the procedure well. Findings: The examined esophagus was normal. The entire examined stomach was normal. Biopsies were taken with a cold forceps for histology. The examined duodenum was normal. Impression: - Normal esophagus. - Normal stomach. Biopsied. - Normal examined duodenum. Recommendation: - Discharge patient to floor. Consider colonoscopy. Rudy Burdcik M.D. Rudy Burdick MD 08/25/2019 1:18:18 PM This report has been signed electronically. Note Initiated On: 08/25/2019 12:48 PM Number of Addenda: 0 I attest to the content of the Intraoperative Record and orders documented therein, exceptions below {[id number]}
--- NOTE | 2019-08-25 14:06 | Anesthesiology Progress Note ---
Date of Service August 25, 2019 Anesthesia Post Procedure Vital Signs Vital Signs: Temp Pulse Pulse Resp BP BP Pulse Ox 08/25/19 13:45 96 H 18 122/78 98 08/25/19 13:30 103 H 18 114/79 95 08/25/19 13:15 36.6 C 110 H 16 98/69 L 94 08/25/19 11:58 37.3 C 100 H 18 122/77 95 08/25/19 11:15 36.8 C 99 H 20 110/74 95 08/25/19 08:34 36.5 C 08/25/19 08:30 110 H 08/25/19 06:44 36.7 C 102 H 20 103/70 99 08/25/19 05:30 99 H 19 121/72 96 08/25/19 03:30 91 H 18 111/78 93 08/25/19 02:20 93 H 21 95 08/25/19 02:10 91 H 13 96 08/25/19 02:00 92 H 13 135/80 95 08/25/19 01:50 88 14 95 08/25/19 01:41 90 16 97 08/25/19 01:30 87 11 L 111/72 95 08/25/19 01:20 83 11 L 95 08/25/19 01:17 36.6 C 85 18 125/71 96 08/25/19 01:13 82 11 L 08/25/19 01:04 86 13 125/71 Transfer of Care Handoff Completed per policy Notes Mental Status: alert / awake / arousable and participated in evaluation Patient Amnestic to Procedure: Yes Nausea / Vomiting: adequately controlled Pain: adequately controlled Airway Patency, RR, SpO2: stable & adequate BP & HR: stable & adequate Hydration State: stable & adequate Anesthetic Complications: no major complications apparent and Pt Satisfied with anesthetic care
--- NOTE | 2019-08-25 14:55 | Electrocardiogram Report ---
Test Reason : Blood Pressure : / mmHG Vent. Rate : 082 BPM Atrial Rate : 082 BPM P-R Int : 180 ms QRS Dur : 116 ms QT Int : 444 ms P-R-T Axes : 057 047 040 degrees QTc Int : 518 ms Normal sinus rhythm Right bundle branch block Prolonged QT Abnormal ECG When compared with ECG of 06-AUG-2016 17:12, Premature atrial complexes are no longer Present Confirmed by Chong Fox ([id number]) on 08/25/2019 2:54:59 PM Referred By: REFERRED SELF Confirmed By:Daryn Fox
--- NOTE | 2019-08-25 15:01 | Electrocardiogram Report ---
Test Reason : Blood Pressure : / mmHG Vent. Rate : 099 BPM Atrial Rate : 099 BPM P-R Int : 170 ms QRS Dur : 164 ms QT Int : 418 ms P-R-T Axes : 064 060 033 degrees QTc Int : 536 ms Normal sinus rhythm Right bundle branch block Abnormal ECG When compared with ECG of 25-AUG-2019 01:08, (unconfirmed) Right bundle branch block has replaced Incomplete right bundle branch block Confirmed by Chong Fox ([id number]) on 08/25/2019 3:00:29 PM Referred By: REFERRED SELF Confirmed By:Daryn Fox
[2019-08-25 16:00] LABS: Hematocrit (blood only) 31.1 % (42-52); Hemoglobin 10.7 g/dL (14.0-18.0)
[2019-08-25] MEDS ORDERED: POLYETHYLENE (MIRALAX) 17 GM PACK PO ONE ×2 (17:00→21:00)
[2019-08-25] MEDS ORDERED: bisacodyL 5 MG TABEC PO ONE (17:00)
--- NOTE | 2019-08-25 18:04 | Hospitalist Progress Note ---
Date of Service August 25, 2019 Assessment & Plan (1) Melena: 2/2 GI blood loss. EGD was normal today. Protonix drip was stopped and patient is being prepped for enteroscopy and colonoscopy in am. Still tachycardic but H/H relatively stable. (2) Anemia: acute blood loss anemia. No indication for transfusion at this time. (3) Hypokalemia: Replace and repeat in am. Goal 4-5 per Cardiology recommendations in setting of prolonged QTc. (4) Syncope: Was likely related related to a combination of orthostasis with acute blood loss from GI bleed and with a vasovagal component. (5) HTN (hypertension): Cont Hyzaar and Norvasc for now but consider holding if BP decreases. (6) DMII (diabetes mellitus, type 2): controlled, cont insulin as needed. (7) Hypothyroidism: Cont Synthroid per home regimen. (8) QT prolongation: Replace potassium, cont current workup for GI blood loss. Appreciate cardiology input. Cont monitoring on telemetry. (9) DVT prophylaxis: SCDs ambulation, chemoprophylaxis contraindicated in active bleeding FULL Dispo- to home when medically stable. Vibha Sales DO [facility] Hospitalist Admission and Anticipated Discharge Date Admission Date: August 25, 2019 Subjective patient doing well post EGD today which was normal. Prepping for lower scope and push enteroscopy in am. Some melena present this afternoon-small stool. Remains tachycardic. Denies chest pain, SOB, abdominal pain. No other issues reported at this time. Review of Systems Review of Systems: All systems reviewed & are unremarkable except as noted in Subjective Physical Exam Physical Exam: CONSTITUTIONAL: WNWD, vitals as above, generally well- appearing EYES: normal conjunctivae, no scleral icterus ENT: MMM RESPIRATORY: clear to auscultation bilaterally, no crackles, rales or wheezes, normal respiratory effort CARDIOVASCULAR: regular rate and rhythm, S1 and 2 heard without murmurs, gallops or rubs, no JVD, no peripheral edema GASTROINTESTINAL: soft, nontender, nondistended MUSCULOSKELETAL: strength 5/5 throughout, head is normocephalic and atraumatic, neck supple, normal palpation of chest wall without tenderness SKIN: warm and dry NEUROLOGIC: CN 2-12 grossly intact, no gross focal deficits. PSYCHIATRIC: alert cooperative and oriented to person, place and time. Results & Data ([facility]) Vital Signs (Past 12 Hours) Vital Signs Temp Pulse Pulse Resp BP BP Pulse Ox 08/25/19 16:33 99 H 08/25/19 15:00 36.5 C 90 18 118/59 L 95 08/25/19 14:15 37 C 116 H 18 123/79 97 08/25/19 13:45 96 H 18 122/78 98 08/25/19 13:30 103 H 18 114/79 95 08/25/19 13:15 36.6 C 110 H 16 98/69 L 94 08/25/19 11:58 37.3 C 100 H 18 122/77 95 08/25/19 11:15 36.8 C 99 H 20 110/74 95 08/25/19 08:34 36.5 C 08/25/19 08:30 110 H 08/25/19 06:44 36.7 C 102 H 20 103/70 99 Laboratory Results Short CBC 08/25/19 08/25/19 08/25/19 Range/Units 01:24 07:45 15:32 WBC 6.75 (4.8-10.8) K/uL Hgb 11.9 L 10.9 L 10.7 L (14.0-18.0) g/dL Hct 35.2 L 31.3 L 31.1 L (42-52) % Plt Count 215 (130-400) K/uL BMP 08/25/19 01:24 Sodium 138 Potassium 3.3 L Chloride 105 Carbon Dioxide 28 BUN 21 H Creatinine 1.06 Glucose 148 H Calcium 8.4 L Cardiac Enzymes 08/25/19 08/25/19 08/25/19 Range/Units 01:24 07:45 15:32 Troponin I < 0.015 < 0.015 < 0.015 (0-0.045) ng/ml Liver Function 08/25/19 Range/Units 01:24 Total Bilirubin 0.5 (0.2-1) mg/dl AST 11 L (15-37) U/L ALT 23 (12-78) U/L Alkaline Phosphatase 59 (45-117) U/L Albumin 3.3 L (3.4-5.0) gm/dl Urine 08/25/19 Range/Units 03:40 Urine Color Yellow Urine Appearance Clear (Clear) Urine pH 5.5 (4.5-7.5) Ur Specific [place] 1.022 (1.000-1.030) Urine Protein Negative (Negative) Urine Glucose (UA) Negative (Negative) Medications Administered Current Inpatient Medications Amlodipine Besylate (Norvasc) 10 mg PO DAILY PEDRO Stop: 09/24/19 08:59 Last Admin: 08/25/19 08:29 Dose: 10 mg Documented by: Atorvastatin Calcium (Lipitor) 40 mg PO DAILY PEDRO Stop: 09/24/19 08:59 Last Admin: 08/25/19 08:26 Dose: Not Given Documented by: HCTZ/Losartan Potassium (Hyzaar 50/12.5mg) 1 tab PO DAILY PEDRO Stop: 09/24/19 08:59 Last Admin: 08/25/19 08:30 Dose: 1 tab Documented by: Sodium Chloride (Nss 1000ml) 1,000 mls @ 125 mls/hr IV .Q8H PEDRO Stop: 09/24/19 06:41 Last Admin: 08/25/19 17:27 Dose: 125 mls/hr Documented by: Insulin Aspart (Novolog Flexpen) 0 units SC ACHS PEDRO Stop: 09/24/19 07:29 Last Admin: 08/25/19 17:23 Dose: 1 units Documented by: Levothyroxine Sodium (Synthroid) 175 mcg PO DAILYBB [facility] Stop: 09/24/19 06:59 Last Admin: 08/25/19 08:31 Dose: 175 mcg Documented by: Nitroglycerin (Nitrostat) 0.4 mg SL UD PRN PRN Reason: Chest Pain Stop: 09/24/19 06:41 Polyethylene Glycol (Miralax Powder Packet) 119 gm PO DAILY ONE Stop: 08/25/19 21:01 (1) Syncope Syncope type: unspecified Qualified Code(s): R55 - Syncope and collapse
[2019-08-26] MEDS: SODIUM CHLORIDE 0.9% 1000ML 1,000 ML IV SCH ×2 (01:42→08:55)
[2019-08-26 06:10] LABS: Basophils # (auto) 0.01 K/uL (0-0.2); Basophils % (auto) 0.2 %; Eosinophils # (auto) 0.12 K/uL (0-0.5); Eosinophils % (auto) 2.2 %; Hematocrit (blood only) 30.6 % (42-52); Hemoglobin 10.4 g/dL (14.0-18.0); Immature Granulocytes # (auto) 0.01 K/uL (0.00-0.02); Immature Granulocytes % (auto) 0.2 %; Lymphocytes # (auto) 1.48 K/uL (1.2-3.4); Lymphocytes % (auto) 27.2 %; Mean Corpuscular Hemoglobin 29.5 pg (25-34); Mean Corpuscular Volume 86.7 fL (80-100); Mean Platelet Volume 9.6 fL (7.4-10.4); Monocytes # (auto) 0.53 K/uL (0.11-0.59); Monocytes % (auto) 9.7 %; Neutrophils # (auto) 3.29 K/uL (1.4-6.5); Neutrophils % (auto) 60.5 %; Platelet Count 218 K/uL (130-400); RDW Coefficient of Variation 13.6 % (11.5-14.5); RDW Standard Deviation 43.1 fL (36.4-46.3); Red Blood Count 3.53 M/uL (4.7-6.1); White Blood Count 5.44 K/uL (4.8-10.8)
[2019-08-26] MEDS: LEVOTHYROXINE SODIUM 175 MCG TABLET PO SCH (06:20)
[2019-08-26 06:50] LABS: BUN Creatinine Ratio 11.1 (10-20); Creatinine Clr Calc Pharmacy 115.3 ml/min; Est GFR (Non-African American) 94.1
[2019-08-26 06:52] LABS: Estimated Average Glucose 137 mg/dl; Hemoglobin A1C 6.4 % (4.5-5.6)
[2019-08-26 07:39] LABS: Potassium 3.2 mmol/L (3.5-5.1)
[2019-08-26 07:41] LABS: Magnesium 1.9 mg/dl (1.8-2.4)
--- NOTE | 2019-08-26 07:49 | Anesthesiology Progress Note ---
Date of Service August 26, 2019 Anesthesia Post Procedure Vital Signs Vital Signs: Temp Pulse Pulse Resp BP BP Pulse Ox 08/26/19 04:09 118 H 08/26/19 03:41 36.7 C 100 H 20 133/77 95 08/25/19 23:47 36.9 C 104 H 22 128/77 91 08/25/19 19:00 36.9 C 89 18 128/64 98 08/25/19 16:33 99 H 08/25/19 15:00 36.5 C 90 18 118/59 L 95 08/25/19 14:15 37 C 116 H 18 123/79 97 08/25/19 13:45 96 H 18 122/78 98 08/25/19 13:30 103 H 18 114/79 95 08/25/19 13:15 36.6 C 110 H 16 98/69 L 94 08/25/19 11:58 37.3 C 100 H 18 122/77 95 08/25/19 11:15 36.8 C 99 H 20 110/74 95 08/25/19 08:34 36.5 C 08/25/19 08:30 110 H Notes Mental Status: alert / awake / arousable and participated in evaluation Patient Amnestic to Procedure: Yes Nausea / Vomiting: adequately controlled Pain: adequately controlled Airway Patency, RR, SpO2: stable & adequate BP & HR: stable & adequate Hydration State: stable & adequate Anesthetic Complications: no major complications apparent and Pt Satisfied with anesthetic care
[2019-08-26] MEDS: ATORVASTATIN 40 MG TAB PO SCH (07:59)
[2019-08-26] MEDS: LOSARTAN/HCTZ 50/12.5MG TAB PO SCH (07:59)
[2019-08-26] MEDS: AMLODIPINE BESYLATE 5 MG TAB PO SCH (08:00)
[2019-08-26] MEDS: INSULIN ASPART 100 UNITS/ML 3 ML PEN SC SCH ×4 (08:02→22:29)
--- NOTE | 2019-08-26 08:30 | Anesthesiology Consultation ---
Date of Service August 26, 2019 Assessment & Plan (1) Encounter for pre-operative examination: Chart Review Chart Review: Acceptable Risk for Surgery and Patient NOT seen in Pre Admission Testing Consults Requested none ASA ASA3 Proposed Anesthesia Anesthesia Type: MAC Risk / Benefits Reviewed With: PT / POA / Parent / Guardian, Accepts Plan and In formed Consent Obtained History Surgery Operation Date: 08/25/19 17:35 Proposed Procedures p Esophagogastroduodenoscopy Dr Lopez - Rudy Burdick Operation Date: 08/26/19 16:00 Proposed Procedures p Colonoscopy Dr Wheatley and Small Bowel Enteroscopy - Augustina Wheatley MD Height/Weight Height: 6 ft 1 in Weight: 99.5 kg Allergies Allergy/AdvReac Type Severity Reaction Status Date / Time No Known Allergies Allergy Unknown Verified 08/25/19 02:32 Medications Home Medications Medication Instructions Recorded Confirmed Last Taken amlodipine 10 mg PO DAILY 08/25/19 08/25/19 08/24/19 ascorbic acid (vitamin C) 1 g PO DAILY 08/25/19 08/25/19 08/24/19 aspirin 81 mg PO DAILY 08/25/19 08/25/19 08/24/19 atorvastatin 40 mg PO DAILY 08/25/19 08/25/19 08/24/19 calcium carbonate-vitamin D3 1 cap PO DAILY 08/25/19 08/25/19 08/24/19 [Calcium 600 + D(3)] ibuprofen 600 mg PO Q6H PRN 08/25/19 08/25/19 08/24/19 levothyroxine [Levoxyl] 175 mcg PO DAILY 08/25/19 08/25/19 08/24/19 losartan-hydrochlorothiazide 1 tab PO DAILY 08/25/19 08/25/19 08/24/19 metformin 1,000 mg PO QPM 08/25/19 08/25/19 08/24/19 metformin 500 mg PO QAM 08/25/19 08/25/19 08/24/19 multivitamin 1 tab PO DAILY 08/25/19 08/25/19 08/24/19 Active Medications Generic Name Dose Route Start Last Admin Trade Name Freq PRN Reason Stop Dose Admin Amlodipine Besylate 10 mg 08/25/19 09:00 08/26/19 08:00 Norvasc PO 09/24/19 08:59 10 mg DAILY PEDRO Administration Atorvastatin Calcium 40 mg 08/25/19 09:00 08/26/19 07:59 Lipitor PO 09/24/19 08:59 40 mg DAILY PEDRO Administration HCTZ/Losartan Potassium 1 tab 08/25/19 09:00 08/26/19 07:59 Hyzaar 50/12.5mg PO 09/24/19 08:59 1 tab DAILY PEDRO Administration Insulin Aspart 0 units 08/25/19 07:30 08/26/19 12:42 Novolog Flexpen SC 09/24/19 07:29 Not Given ACHS PEDRO Levothyroxine Sodium 175 mcg 08/25/19 07:00 08/26/19 06:20 Synthroid PO 09/24/19 06:59 175 mcg DAILYBB PEDRO Administration NPO Date Last Intake of Fluids: 08/24/19 Time Last Intake of Fluids: 19:30 Date Last Intake of Solids: 08/24/19 Time Last Intake of Solids: 18:00 Past Medical History Medical History Diabetes Hypertension Hyperthyroidism Exercise / Class Metabolic Activity II 4-5 Yardwork/Stairs/Walk up hill Past Anesthesia History No Hx of Anesthesia Complications and No Family Hx of Anesthesia Complications History of PONV No Hx of PONV and No Hx of Motion Sickness Social History Smoking Status: Never smoker Do You Dip or Chew Tobacco: No Hx Alcohol Use: No Hx Substance Use: No Review of Systems Negative for chest pain or shortness of breath. Patient denies active symptoms of GERD. Physical Exam Vital Signs Last Vital Signs Temp 37.4 C 08/26/19 12:25 Pulse 102 H 08/26/19 12:25 Resp 18 08/26/19 12:25 BP 118/76 08/26/19 12:25 Pulse Ox 93 08/26/19 12:25 Constitutional not obese ENMT Mouth: no TMJ abnormality and oral opening not small Thyromental Distance: > or= 3.5 Finger Breadths Mallampati Class: II Neck normal visual inspection; neck extension not limited Respiratory normal respiratory effort Auscultation: lungs clear to auscultation bilaterally Cardiovascular Rate/Rhythm: regular rate and regular rhythm Heart Sounds: no murmur Neurologic moves all extremities Psychiatric Orientation: alert and oriented x 3 Testing Laboratory Results 08/26/19 05:48 08/26/19 07:02 PT 10.7 Seconds (9.0-12.0) 08/25/19 07:45 INR 1.0 (0.9-1.1) 08/25/19 07:45 APTT 23.1 Seconds (21.0-31.0) 08/25/19 07:45 Hemoglobin A1c 6.4 % (4.5-5.6) H 08/26/19 05:48 Urine Color Yellow 08/25/19 03:40 Urine Appearance Clear (Clear) 08/25/19 03:40 Urine pH 5.5 (4.5-7.5) 08/25/19 03:40 Ur Specific [place] 1.022 (1.000-1.030) 08/25/19 03:40 Urine Protein Negative (Negative) 08/25/19 03:40 Urine Glucose (UA) Negative (Negative) 08/25/19 03:40 Urine Ketones Negative (Negative) 08/25/19 03:40 Urine Nitrite Negative (Negative) 08/25/19 03:40 Ur Leukocyte Esterase Negative (Negative) 08/25/19 03:40 08/25/19 03:40 Escherichia coli Shiga Toxins Test - Preliminary Stool Stool Culture - Preliminary No Salmonella isolated to date, No Shigella isolated to date, No Campylobacter jejuni isolated to date. 08/26/19 08/26/19 11:53 07:34 POC Glucose 112 H 146 H Electrocardiogram Date: 08/25/19 Findings: + NSR @ (99)
--- NOTE | 2019-08-26 09:23 | Gastroenterology Progress Note ---
Date of Service August 26, 2019 Assessment & Plan (1) Melena: (2) Anemia: Pt is a 64 y/o male who presented w melena x 2 days, syncope last night while having BMs, noted to be anemic on presentation. He's been on Ibuprofen jail for arthritis pain. Suspected PUD however EGD 08/25/2019 w normal exam. He is currently NPO, prepped to undergo small bowel enteroscopy and colonoscopy today. - Keep NPO - GI will give further recs after SBE and colonoscopy are completed today Admission and Anticipated Discharge Date Admission Date: August 25, 2019 Supervising Physician Co-Signing Physician Notes I performed a history and physical examination of the patient today, including specifically on physical exam - soft abdomen. I have discussed the patient's management with the advanced practitioner. Please refer to the nurse practitioner's note for the documented findings and plan of care. Subjective Pt completed bowel prep for colonoscopy. Last bowel movement 6:30a, pinkish tinge but clear enough to see bottom of commode. Denies abd pain, n/v. Blood ct stable. Review of Systems Review of Systems: All systems reviewed & are unremarkable except as noted in HPI & below Physical Exam Constitutional: WD/WN, vitals as above well groomed, cooperative and comfortable Eyes: PERRL, conjunctivae normal, anicteric sclerae ENMT: external ear and nose normal, oropharynx normal Respiratory: normal respiratory effort, lungs clear to auscultation Cardiovascular: RRR, no murmur, no edema Gastrointestinal (Abdomen): normal bowel sounds, soft, nontender, no hepatosplenomegaly Skin: no rashes, warm and dry no jaundice Psychiatric: A+Ox3, euthymic affect Lymphatic: no lymphedema Results & Data ([facility]) Vital Signs (Past 12 Hours) Vital Signs Temp Pulse Pulse Resp BP BP Pulse Ox 08/26/19 07:50 36.5 C 108 H 18 139/69 98 08/26/19 04:09 118 H 08/26/19 03:41 36.7 C 100 H 20 133/77 95 08/25/19 23:47 36.9 C 104 H 22 128/77 91
[2019-08-26] MEDS ORDERED: POTASSIUM CHLORIDE 20 MEQ TABCR PO SCH (10:00)
[2019-08-26] MEDS ORDERED: MAGNESIUM OXIDE 400 MG TAB PO STA (10:03)
[2019-08-26] MEDS ORDERED: POTASSIUM CHLORIDE 20 MEQ TABCR PO STA (10:04)
--- NOTE | 2019-08-26 11:19 | Cardiology Progress Note ---
Date of Service August 26, 2019 Assessment & Plan (1) Syncope: Given the clinical presentation I believe this represents a classic episode of orthostatic syncope also with a possible vasovagal component. Given the current clinical context I believe this is explained by combination of the active GI bleed along with orthostasis and volume depletion in a patient who is on multiple antihypertensives. No significant arrhythmias present on telemetry since admission 2D echocardiogram without significant abnormality. (2) GI bleed: Patient has a longstanding history of chronic NSAID use Endoscopy unremarkable for colonoscopy today Given prep patient is now hypokalemic despite receiving supplementation yesterday. Given prolonged QT interval must maintain a potassium level of 4-5. We will give potassium chloride 60 mg p.o. x1 now along with magnesium oxide 200 mg p.o. x1 now. Potassium level will be drawn after colonoscopy and repleted as necessary The patient and his are counseled that I would place him as a low to moderate risk for any adverse perioperative cardiovascular event during his above procedures with the risk of an adverse event of approximately less than 5%. They were further counseled that no further cardiac testing or intervention would further lower that risk. They both state that they understand, they are accepting of this risk and wish to proceed with the procedures. I have no cardiac contraindication to proceeding at this time. (3) RBBB: EKG from 2015 does show an incomplete right bundle branch block Given lack of structural abnormalities on echocardiogram this is not a significant finding. (4) Prolonged QT interval: His QT is significantly prolonged however he has no history of syncope nor any family history of sudden cardiac . This is possibly worsened by his active bleed and hypokalemia. Given the fact there is no structural abnormalities on his echocardiogram we will complete a work-up as an outpatient to include outpatient telemetry monitoring and possibly initiation of beta-blockade, but again, this will be done as an outpatient and should not delay his active GI bleed work-up (5) Hypokalemia: As above. Must maintain potassium level 4-5 given QT prolongation and concern for ventricular arrhythmias Subjective Patient seen and examined with at bedside. States that he is feeling well. Tolerated prep overnight well. Denies any cardiac complaints of chest pain, shortness of breath, palpitations, lightheadedness, dizziness or syncope. Telemetry reviewed: Normal sinus rhythm with underlying right bundle branch block no sustained arrhythmias no significant ventricular ectopy. Review of Systems Review of Systems: All systems reviewed & are unremarkable except as noted in HPI & below Physical Exam Physical Exam: General: Awake, alert and oriented x 3. No acute distress. HEENT: Normocephalic, atraumatic. Pupils equal, round and reactive to light and accommodation. Extraocular muscles are intact. Anicteric sclera. Moist mucous membranes. Neck: No JVD. No bruit. Cardiovascular: Regular. Positive S-4. Normal S-1 and S-2. No S-3. No murmurs or rubs. Pulmonary: Clear to auscultation B/L. No rales, rhonchi or wheezing Abdomen: Bowel sounds x 4, soft. No rebound, guarding or tenderness. No organomegaly. Extremities: No clubbing, cyanosis or edema. +2 pedal pulses bilaterally. Skin: Warm and dry. Results & Data Vital Signs (Past 12 Hours) Vital Signs Temp Pulse Pulse Resp BP BP Pulse Ox 08/26/19 08:00 107 H 08/26/19 07:50 36.5 C 108 H 18 139/69 98 08/26/19 04:09 118 H 08/26/19 03:41 36.7 C 100 H 20 133/77 95 08/25/19 23:47 36.9 C 104 H 22 128/77 91 Laboratory Results Laboratory Results - last 24 hr 08/25/19 08/25/19 08/25/19 11:32 15:32 15:32 WBC RBC Hgb 10.7 L Hct 31.1 L MCV MCH MCHC RDW Std Deviation RDW Coeff of Bruno Plt Count MPV Immature Gran % (Auto) Neut % (Auto) Lymph % (Auto) [place] % (Auto) Eos % (Auto) Baso % (Auto) Immature Gran # (Auto) Neut # (Auto) Lymph # (Auto) [place] # (Auto) Eos # (Auto) Baso # (Auto) Sodium Potassium Chloride Carbon Dioxide Anion Gap BUN Creatinine Est Cr Clr Drug Dosing Est GFR ( Amer) Est GFR (Non-Af Amer) BUN/Creatinine Ratio Glucose POC Glucose 117 H Estimat Average Glucose Hemoglobin A1c Calcium Magnesium Troponin I < 0.015 Stl C. diff Tox B Gene 08/25/19 08/25/19 08/25/19 16:12 16:24 20:26 WBC RBC Hgb Hct MCV MCH MCHC RDW Std Deviation RDW Coeff of Bruno Plt Count MPV Immature Gran % (Auto) Neut % (Auto) Lymph % (Auto) [place] % (Auto) Eos % (Auto) Baso % (Auto) Immature Gran # (Auto) Neut # (Auto) Lymph # (Auto) [place] # (Auto) Eos # (Auto) Baso # (Auto) Sodium Potassium Chloride Carbon Dioxide Anion Gap BUN Creatinine Est Cr Clr Drug Dosing Est GFR ( Amer) Est GFR (Non-Af Amer) BUN/Creatinine Ratio Glucose POC Glucose 113 H 127 H Estimat Average Glucose Hemoglobin A1c Calcium Magnesium Troponin I Stl C. diff Tox B Gene Negative Cdiff Gene 08/26/19 08/26/19 08/26/19 05:48 05:48 05:48 WBC 5.44 RBC 3.53 L Hgb 10.4 L Hct 30.6 L MCV 86.7 MCH 29.5 MCHC 34.0 RDW Std Deviation 43.1 RDW Coeff of Bruno 13.6 Plt Count 218 MPV 9.6 Immature Gran % (Auto) 0.2 Neut % (Auto) 60.5 Lymph % (Auto) 27.2 [place] % (Auto) 9.7 Eos % (Auto) 2.2 Baso % (Auto) 0.2 Immature Gran # (Auto) 0.01 Neut # (Auto) 3.29 Lymph # (Auto) 1.48 [place] # (Auto) 0.53 Eos # (Auto) 0.12 Baso # (Auto) 0.01 Sodium 139 Potassium Chloride 108 H Carbon Dioxide 26 Anion Gap 5.0 BUN 9 D Creatinine 0.78 Est Cr Clr Drug Dosing 115.3 Est GFR ( Amer) 109.0 Est GFR (Non-Af Amer) 94.1 BUN/Creatinine Ratio 11.1 Glucose 130 H POC Glucose Estimat Average Glucose 137 Hemoglobin A1c 6.4 H Calcium 8.0 L Magnesium Troponin I Stl C. diff Tox B Gene 08/26/19 08/26/19 07:02 07:34 WBC RBC Hgb Hct MCV MCH MCHC RDW Std Deviation RDW Coeff of Bruno Plt Count MPV Immature Gran % (Auto) Neut % (Auto) Lymph % (Auto) [place] % (Auto) Eos % (Auto) Baso % (Auto) Immature Gran # (Auto) Neut # (Auto) Lymph # (Auto) [place] # (Auto) Eos # (Auto) Baso # (Auto) Sodium Potassium 3.2 L Chloride Carbon Dioxide Anion Gap BUN Creatinine Est Cr Clr Drug Dosing Est GFR ( Amer) Est GFR (Non-Af Amer) BUN/Creatinine Ratio Glucose POC Glucose 146 H Estimat Average Glucose Hemoglobin A1c Calcium Magnesium 1.9 Troponin I Stl C. diff Tox B Gene Medications Administered Current Inpatient Medications Amlodipine Besylate (Norvasc) 10 mg PO DAILY PEDRO Stop: 09/24/19 08:59 Last Admin: 08/26/19 08:00 Dose: 10 mg Documented by: Atorvastatin Calcium (Lipitor) 40 mg PO DAILY PEDRO Stop: 09/24/19 08:59 Last Admin: 08/26/19 07:59 Dose: 40 mg Documented by: HCTZ/Losartan Potassium (Hyzaar 50/12.5mg) 1 tab PO DAILY PEDRO Stop: 09/24/19 08:59 Last Admin: 08/26/19 07:59 Dose: 1 tab Documented by: Sodium Chloride (Nss 1000ml) 1,000 mls @ 125 mls/hr IV .Q8H PEDRO Stop: 09/24/19 06:41 Last Admin: 08/26/19 08:55 Dose: 125 mls/hr Documented by: Insulin Aspart (Novolog Flexpen) 0 units SC ACHS PEDRO Stop: 09/24/19 07:29 Last Admin: 08/26/19 08:02 Dose: Not Given Documented by: Levothyroxine Sodium (Synthroid) 175 mcg PO DAILYBB [facility] Stop: 09/24/19 06:59 Last Admin: 08/26/19 06:20 Dose: 175 mcg Documented by: Nitroglycerin (Nitrostat) 0.4 mg SL UD PRN PRN Reason: Chest Pain Stop: 09/24/19 06:41 Potassium Chloride (Klor-Con M20) 40 meq PO Q6H PEDRO Stop: 08/27/19 00:01 (1) Syncope Syncope type: unspecified Qualified Code(s): R55 - Syncope and collapse (2) GI bleed GI bleed type/associated pathology: unspecified gastrointestinal hemorrhage type Qualified Code(s): K92.2 - Gastrointestinal hemorrhage, unspecified
[2019-08-26] MEDS ORDERED: LIDOCAINE HCL 2% 2 ML VIAL/AMP(20MG/ML) INFIL ONE (12:42)
[2019-08-26] MEDS ORDERED: PROPOFOL IV EMULSION 10 MG/ML 20 ML VIAL IV ONE (12:42)
--- NOTE | 2019-08-26 12:42 | History & Physical Bridge Note ---
Date of Service August 26, 2019 History & Physical Bridge Note I have examined the patient, reviewed the History & Physical and in the interval since the performance of the History & Physical I have noted the following changes of clinical significance: no changes noted
[2019-08-26] MEDS ORDERED: fentaNYL citrate 100 MCG/2 ML VIAL ONE (13:04)
--- NOTE | 2019-08-26 14:35 | Anesthesiology Progress Note ---
Date of Service August 26, 2019 Anesthesia Post Procedure Vital Signs Vital Signs: Temp Pulse Pulse Resp BP BP Pulse Ox 08/26/19 14:19 97 H 18 145/77 H 93 08/26/19 14:04 101 H 18 146/83 H 95 08/26/19 13:49 36.5 C 102 H 16 148/77 H 94 08/26/19 12:25 37.4 C 102 H 18 118/76 93 08/26/19 11:35 37.4 C 100 H 16 128/78 93 08/26/19 08:00 107 H 08/26/19 07:50 36.5 C 108 H 18 139/69 98 08/26/19 04:09 118 H 08/26/19 03:41 36.7 C 100 H 20 133/77 95 08/25/19 23:47 36.9 C 104 H 22 128/77 91 08/25/19 19:00 36.9 C 89 18 128/64 98 08/25/19 16:33 99 H 08/25/19 15:00 36.5 C 90 18 118/59 L 95 Transfer of Care Handoff Completed per policy Notes Mental Status: alert / awake / arousable and participated in evaluation Nausea / Vomiting: adequately controlled Pain: adequately controlled Airway Patency, RR, SpO2: stable & adequate BP & HR: stable & adequate Hydration State: stable & adequate Anesthetic Complications: no major complications apparent and Pt Satisfied with anesthetic care
--- NOTE | 2019-08-26 14:41 | GI REPORT ---
Patient Name: Danish Devi Procedure Date: 08/26/2019 12:24 PM Date of : 1955 Admit Type: Inpatient Age: 64 Gender: Male Attending MD: Augustina Wheatley MD Procedure: Small bowel enteroscopy Providers: Augustina Wheatley MD Referring MD: La Hernandez Indications: Hematochezia Medicines: Propofol per Anesthesia Complications: No immediate complications. Estimated Blood Loss: Estimated blood loss: none. Procedure: Pre-Anesthesia Assessment: - Prior to the procedure, a History and Physical was performed, and patient medications, allergies and sensitivities were reviewed. The patient's tolerance of previous anesthesia was reviewed. - The risks and benefits of the procedure and the sedation options and risks were discussed with the patient. All questions were answered and informed consent was obtained. - Patient identification and proposed procedure were verified prior to the procedure by the physician and the nurse. The procedure was verified in the procedure room. - Pre-procedure physical examination revealed no contraindications to sedation. After obtaining informed consent, the endoscope was passed under direct vision. Throughout the procedure, the patient's blood pressure, pulse, and oxygen saturations were monitored continuously. The scope was introduced through the mouth, and advanced to the mid-jejunum. After obtaining informed consent, the endoscope was passed under direct vision. Throughout the procedure, the patient's blood pressure, pulse, and oxygen saturations were monitored continuously.The small bowel enteroscopy was accomplished without difficulty. The patient tolerated the procedure well. Findings: The examined esophagus was normal. A few localized, small non-bleeding erosions were found in the gastric antrum. There were no stigmata of recent bleeding. There was no evidence of significant pathology in the entire examined duodenum. There was no evidence of significant pathology in the entire examined portion of jejunum. Impression: - Normal esophagus. - Non-bleeding erosive gastropathy. - Normal examined duodenum. - The examined portion of the jejunum was normal. Recommendation: - Perform a colonoscopy today. Augustina Wheatley MD 08/26/2019 2:41:09 PM This report has been signed electronically. Note Initiated On: 08/26/2019 12:24 PM Number of Addenda: 0 I attest to the content of the Intraoperative Record and orders documented therein, exceptions below {[id number]}
--- NOTE | 2019-08-26 14:46 | GI REPORT ---
Patient Name: Danish Devi Procedure Date: 08/26/2019 12:23 PM Date of : 1955 Admit Type: Inpatient Age: 64 Gender: Male Attending MD: Augustina Wheatley MD Procedure: Colonoscopy Providers: Augustina Wheatley MD Referring MD: La Hernandez Indications: Hematochezia Medicines: Propofol per Anesthesia Complications: No immediate complications. Estimated Blood Loss: Estimated blood loss: none. Procedure: Pre-Anesthesia Assessment: - Prior to the procedure, a History and Physical was performed, and patient medications, allergies and sensitivities were reviewed. The patient's tolerance of previous anesthesia was reviewed. - The risks and benefits of the procedure and the sedation options and risks were discussed with the patient. All questions were answered and informed consent was obtained. - Patient identification and proposed procedure were verified prior to the procedure by the physician and the nurse. The procedure was verified in the procedure room. - Pre-procedure physical examination revealed no contraindications to sedation. After I obtained informed consent, the scope was passed under direct vision. Throughout the procedure, the patient's blood pressure, pulse, and oxygen saturations were monitored continuously. The scope was introduced through the anus and advanced to the terminal ileum. The colonoscopy was performed without difficulty. The patient tolerated the procedure well. The quality of the bowel preparation was poor. The terminal ileum, ileocecal valve, appendiceal orifice, and rectum were photographed. Findings: The perianal and digital rectal examinations were normal. The terminal ileum appeared normal. Backwashed old blood seen. Hematin (altered blood) was found in the entire colon. Scattered small and large-mouthed diverticula were found in the entire colon. Non-bleeding internal hemorrhoids were found during retroflexion. The hemorrhoids were medium-sized. Impression: - Preparation of the colon was poor hence could not clearly identify a source of bleeding however it seems like a diverticular bleed.. - The examined portion of the ileum was normal. - Blood in the entire examined colon. - Diverticulosis in the entire examined colon. - Non-bleeding internal hemorrhoids. Recommendation: - [facility]. - Clear liquid diet today. - Do a GI bleeding (tagged RBC) scan today and may need IR embolization if positive. Augustina Wheatley MD 08/26/2019 2:46:15 PM This report has been signed electronically. Note Initiated On: 08/26/2019 12:23 PM Number of Addenda: 0 I attest to the content of the Intraoperative Record and orders documented therein, exceptions below {[id number]}
--- NOTE | 2019-08-26 18:06 | Hospitalist Progress Note ---
Date of Service August 26, 2019 Assessment & Plan (1) Melena: 2/2 GI blood loss. Prepped overnight for scope today. EGD was normal on 08/25. (2) Anemia: acute blood loss anemia. No indication for transfusion at this time. (3) Hypokalemia: Replace and repeat in am. Goal 4-5 per Cardiology recommendations in setting of prolonged QTc. Hold HCTZ which may be contributing to this and contributing to hypotension. (4) Syncope: Ambulating without difficulty. Was likely related related to a combination of orthostasis with acute blood loss from GI bleed and with a vasovagal component. (5) HTN (hypertension): Holding Hyzaar, cont Norvasc for now but consider holding if BP decreases any further. (6) DMII (diabetes mellitus, type 2): controlled, cont insulin as needed. (7) Hypothyroidism: Cont Synthroid per home regimen. (8) QT prolongation: Replace potassium, cont current workup for GI blood loss. Appreciate cardiology input. Cont monitoring on telemetry. (9) DVT prophylaxis: SCDs ambulation, chemoprophylaxis contraindicated in active bleeding FULL Dispo- to home when medically stable. Vibha Sales DO [facility] Hospitalist Admission and Anticipated Discharge Date Admission Date: August 25, 2019 Subjective doing well today denies abdominal pain denies symptoms finished prep, melena somewhat persistent overnight awaiting procedure this afternoon Review of Systems Review of Systems: All systems reviewed & are unremarkable except as noted in Subjective Physical Exam Physical Exam: CONSTITUTIONAL: WNWD, vitals as above, generally well- appearing EYES: normal conjunctivae, no scleral icterus ENT: MMM RESPIRATORY: clear to auscultation bilaterally, no crackles, rales or wheezes, normal respiratory effort CARDIOVASCULAR: regular rate and rhythm, S1 and 2 heard without murmurs, gallops or rubs, no JVD, no peripheral edema GASTROINTESTINAL: soft, nontender, nondistended MUSCULOSKELETAL: strength 5/5 throughout, head is normocephalic and atraumatic SKIN: warm and dry NEUROLOGIC: CN 2-12 grossly intact, no gross focal deficits, ambulatory PSYCHIATRIC: alert cooperative and oriented to person, place and time. Results & Data ([facility]) Vital Signs (Past 12 Hours) Vital Signs Temp Pulse Pulse Resp BP Pulse Ox 08/26/19 16:07 37.4 C 117 H 20 105/67 97 08/26/19 16:00 95 H 08/26/19 14:19 97 H 18 145/77 H 93 08/26/19 14:04 101 H 18 146/83 H 95 08/26/19 13:49 36.5 C 102 H 16 148/77 H 94 08/26/19 12:25 37.4 C 102 H 18 118/76 93 08/26/19 11:35 37.4 C 100 H 16 128/78 93 08/26/19 08:00 107 H 08/26/19 07:50 36.5 C 108 H 18 139/69 98 Laboratory Results Short CBC 08/26/19 Range/Units 05:48 WBC 5.44 (4.8-10.8) K/uL Hgb 10.4 L (14.0-18.0) g/dL Hct 30.6 L (42-52) % Plt Count 218 (130-400) K/uL BMP 08/26/19 08/26/19 08/26/19 05:48 07:02 16:04 Sodium 139 Potassium 3.2 L 3.3 L Chloride 108 H Carbon Dioxide 26 BUN 9 D Creatinine 0.78 Glucose 130 H Calcium 8.0 L Medications Administered Current Inpatient Medications Amlodipine Besylate (Norvasc) 10 mg PO DAILY [facility] Stop: 09/24/19 08:59 Last Admin: 08/26/19 08:00 Dose: 10 mg Documented by: Atorvastatin Calcium (Lipitor) 40 mg PO DAILY [facility] Stop: 09/24/19 08:59 Last Admin: 08/26/19 07:59 Dose: 40 mg Documented by: HCTZ/Losartan Potassium (Hyzaar 50/12.5mg) 1 tab PO DAILY [facility] Stop: 09/24/19 08:59 Last Admin: 08/26/19 07:59 Dose: 1 tab Documented by: Insulin Aspart (Novolog Flexpen) 0 units SC ACHS [facility] Stop: 09/24/19 07:29 Last Admin: 08/26/19 17:42 Dose: Not Given Documented by: Levothyroxine Sodium (Synthroid) 175 mcg PO DAILYBB [facility] Stop: 09/24/19 06:59 Last Admin: 08/26/19 06:20 Dose: 175 mcg Documented by: Nitroglycerin (Nitrostat) 0.4 mg SL UD PRN PRN Reason: Chest Pain Stop: 09/24/19 06:41 Potassium Chloride (Klor-Con M20) 40 meq PO Q6H [facility] Stop: 08/27/19 00:01 (1) Syncope Syncope type: unspecified Qualified Code(s): R55 - Syncope and collapse
--- NOTE | 2019-08-26 19:00 | Electrocardiogram Report ---
Test Reason : Blood Pressure : / mmHG Vent. Rate : 099 BPM Atrial Rate : 099 BPM P-R Int : 186 ms QRS Dur : 156 ms QT Int : 414 ms P-R-T Axes : 063 058 033 degrees QTc Int : 531 ms Normal sinus rhythm Right bundle branch block Abnormal ECG When compared with ECG of 25-AUG-2019 07:42, No significant change was found Confirmed by Chong Fox ([id number]) on 08/26/2019 7:00:11 PM Referred By: REFERRED SELF Confirmed By:Daryn Fox
--- NOTE | 2019-08-26 19:22 | Nuclear Medicine Report ---
NM GI bleeding CLINICAL HISTORY: 64 years-old Male with rectal bleeding. Acute GI bleed TECHNIQUE: Following the intravenous administration of red cells labeled with 24.8 mCi of technetium -99m Ultratag, sequential abdominal images were obtained for 60 minutes. Injection was administered v ia the right upper extremity. COMPARISON: None. FINDINGS: Patient motion limits the study. On the early arterial dynamic images tracer accumulation is noted wi thin the central pelvis below the urinary bladder, possibly within the rectum. The remainder of the s tudy is unremarkable with no additional abnormal foci of labeled red cell accumulation or extravasati on. There is expected activity in the blood pool. IMPRESSION: Patient movement at the beginning of the study limits the exam. There is early arterial tracer accumulation within the central lower pelvis which is likely within the rectum suggestive of a cute GI bleed. The remainder of the study is unremarkable. ACT 112: Negative or not required by law. The above report was generated using voice recognition software. It may contain grammatical, syntax o r spelling errors. Electronically signed by: Quinton Garcia M.D. 08/26/2019 7:21 PM
[2019-08-26] MEDS: POTASSIUM CHLORIDE 20 MEQ TABCR PO SCH (19:59)
[2019-08-26 20:45] LABS: Hematocrit (blood only) 26.1 % (42-52)
[2019-08-27] MEDS: POTASSIUM CHLORIDE 20 MEQ TABCR PO SCH (00:43)
[2019-08-27] MEDS ORDERED: SODIUM CHLORIDE 0.9% 500 ML IV ONE (03:36)
[2019-08-27] MEDS: LEVOTHYROXINE SODIUM 175 MCG TABLET PO SCH (03:52)
[2019-08-27 03:54] LABS: Eosinophils # (auto) 0.04 K/uL (0-0.5); Eosinophils % (auto) 0.8 %; Hematocrit (blood only) 25.1 % (42-52); Hemoglobin 8.5 g/dL (14.0-18.0); Lymphocytes # (auto) 1.73 K/uL (1.2-3.4); Lymphocytes % (auto) 34.5 %; Mean Corpuscular Hemoglobin 29.7 pg (25-34); Mean Corpuscular Hgb Conc 33.9 g/dL (32-36); Mean Corpuscular Volume 87.8 fL (80-100); Mean Platelet Volume 8.8 fL (7.4-10.4); Monocytes # (auto) 0.48 K/uL (0.11-0.59); Monocytes % (auto) 9.6 %; Neutrophils # (auto) 2.76 K/uL (1.4-6.5); Neutrophils % (auto) 55.1 %; Platelet Count 206 K/uL (130-400); RDW Coefficient of Variation 13.5 % (11.5-14.5); RDW Standard Deviation 43.8 fL (36.4-46.3); Red Blood Count 2.86 M/uL (4.7-6.1); White Blood Count 5.01 K/uL (4.8-10.8)
[2019-08-27] MEDS ORDERED: MAGNESIUM SULFATE / D5W 1 GM/100 ML BAG IV ONE (04:00)
[2019-08-27 04:14] LABS: BUN Creatinine Ratio 12.1 (10-20); Calcium 7.9 mg/dl (8.5-10.1); Creatinine Clr Calc Pharmacy 106.4 ml/min; Est GFR (African American) 105.7; Est GFR (Non-African American) 91.2; Magnesium 2.1 mg/dl (1.8-2.4)
[2019-08-27] MEDS ORDERED: CARBOHYDRATES FOR HYPOGLYCEMIA PO PRN (04:15)
[2019-08-27] MEDS ORDERED: GLUCOSE 10 TABS/TUBE PO PRN (04:15)
[2019-08-27] MEDS ORDERED: GLUCOSE 40% GEL 15 GM TUBE PO PRN (04:15)
[2019-08-27] MEDS ORDERED: DEXTROSE 50% 50 ML SYRINGE IV PRN (04:15)
[2019-08-27] MEDS ORDERED: GLUCAGON FOR INJ 1 MG VIAL IM PRN (04:15)
--- NOTE | 2019-08-27 07:35 | Hospitalist Progress Note ---
Date of Service August 27, 2019 Assessment & Plan (1) Melena: 2/2 GI blood loss. EGD was normal. Protonix drip was stopped. H/H relatively stable. Bleeding scan noted-There is early arterial tracer accumulation within the central lower pelvis which is likely within the rectum suggestive of acute GI bleed. May need IR, will d/w GI (2) Anemia: acute blood loss anemia. No indication for transfusion at this time. Hb still trending down (3) Hypokalemia: Goal 4-5 per Cardiology recommendations in setting of prolonged QTc. (4) Syncope: Was likely related related to a combination of orthostasis with acute blood loss from GI bleed and with a vasovagal component. (5) HTN (hypertension): Cont Hyzaar and Norvasc c parameters (6) DMII (diabetes mellitus, type 2): controlled, cont insulin as needed. (7) Hypothyroidism: Cont Synthroid per home regimen. (8) QT prolongation: Monitor potassium. (9) DVT prophylaxis: SCDs ambulation, chemoprophylaxis contraindicated in active bleeding FULL Dispo- to home when medically stable. Labs Checked May Need IR for coiling if GI can't stop the bleeding ROS-No Headache, No Visual Changes, No Nausea, No Vomiting, No Fever, No Chills, No Neck Pain or Stiffness, No Chest Pain, No Palpitations, No SOB, No RAMOS, No Cough, No Sputum, No Wheezing, No Abdominal Pain, No Diarrhea, No Hematemesis, No Hemoptysis, No Unexpected Weight Loss, No Flank pain, No Melena, No Hematochezia, No Frequency, No Urgency, No Burning, No Hematuria, No Rashes, No Diaphoresis. Appetite is Normal Physical Exam Gen-AAO x 3, NAD, Afebrile Head-NCAT, EOMI, PERRLA, Anicteric Sclera, No Posterior Pharyngeal Erythema Neck-Supple, No JVD, No Thyromegaly, No Masses, No LAD, No Bruits Lungs-Clear to Auscultation Bilaterally, No Rales, No Rhonchi, No Wheezing, No Crepitus Chest-No S4, +S1, +S2, No S3, No Murmurs, No Rubs, No Gallops, No Ectopy Abdomen-Soft, Bowel Sounds Present, Non Tender, Non Distended, No Hepatomegaly, No Splenomegaly, No Palpable Masses, No Rebound, No Rigidity, No Guarding Musculoskeletal-Full Range of Motion Bilaterally, No CVAT Extremities-No Cyanosis, No Clubbing, No Edema Nuero-Cranial Nerves II-XII grossly intact, Motor WNL, DTRs WNL, Strength WNL, Non Focal Psych-Normal Mood Admission and Anticipated Discharge Date Admission Date: August 25, 2019 Results & Data ([facility]) Vital Signs (Past 12 Hours) Vital Signs Temp Pulse Resp BP Pulse Ox 08/27/19 07:14 36.7 C 91 H 18 115/71 94 08/27/19 03:01 36.8 C 117 H 16 96/62 L 95 08/26/19 23:16 36.7 C 97 H 16 128/76 93 08/26/19 19:46 117 H 19 109/74 97 (1) Syncope Syncope type: unspecified Qualified Code(s): R55 - Syncope and collapse
[2019-08-27] MEDS: ATORVASTATIN 40 MG TAB PO SCH (08:00)
[2019-08-27] MEDS: INSULIN ASPART 100 UNITS/ML 3 ML PEN SC SCH ×4 (08:03→21:04)
--- NOTE | 2019-08-27 09:13 | Anesthesiology Progress Note ---
Date of Service August 27, 2019 Anesthesia Post Procedure Vital Signs Vital Signs: Temp Pulse Pulse Resp BP Pulse Ox 08/27/19 07:14 36.7 C 91 H 18 115/71 94 08/27/19 03:01 36.8 C 117 H 16 96/62 L 95 08/26/19 23:16 36.7 C 97 H 16 128/76 93 08/26/19 19:46 117 H 19 109/74 97 08/26/19 16:07 37.4 C 117 H 20 105/67 97 08/26/19 16:00 95 H 08/26/19 14:19 97 H 18 145/77 H 93 08/26/19 14:04 101 H 18 146/83 H 95 08/26/19 13:49 36.5 C 102 H 16 148/77 H 94 08/26/19 12:25 37.4 C 102 H 18 118/76 93 08/26/19 11:35 37.4 C 100 H 16 128/78 93 Notes Mental Status: alert / awake / arousable and participated in evaluation Patient Amnestic to Procedure: Yes Nausea / Vomiting: adequately controlled Pain: adequately controlled Airway Patency, RR, SpO2: stable & adequate BP & HR: stable & adequate Hydration State: stable & adequate Anesthetic Complications: no major complications apparent and Pt Satisfied with anesthetic care
--- NOTE | 2019-08-27 09:27 | Gastroenterology Progress Note ---
Date of Service August 27, 2019 Assessment & Plan (1) Melena: (2) Anemia: Pt is a 64 y/o male who presented w melena x 2 days, syncope last night while having BMs, noted to be anemic on presentation. He's been on Ibuprofen [facility] for arthritis pain. Suspected PUD however EGD 08/25/2019 w normal exam. SBE and colonoscopy done 08/26. SBE normal. Colonoscopy limited due to poor prep, + int hemorrhoids, diverticulosis in entire colon, suspected diverticular bleeding. GI bleeding scan done after SBE/Colonoscopy showed activity in center pelvis, rectum area. - Keep NPO now. Plan for repeat colonoscopy by Dr. Burdick - Monitor H/H and transfuse prn Attg add; I interviewed and examined pt, reviewed chart and labs. Repeat hgb this am was 10. Pt cont without rectal bleeding this am. Plan cscopy to eval for rectal bleeding. Admission and Anticipated Discharge Date Admission Date: August 25, 2019 Subjective Pt had rectal bleeding again 5P yesterday. None since then. Denies abd pain, n/v Hgb dropped 10 -> 8.5 GI bleeding scan showed activity tracer in central lower pelvis, rectal area Review of Systems Review of Systems: All systems reviewed & are unremarkable except as noted in HPI & below Physical Exam Constitutional: WD/WN, vitals as above well groomed, cooperative and comfortable Eyes: PERRL, conjunctivae normal, anicteric sclerae ENMT: external ear and nose normal, oropharynx normal Respiratory: normal respiratory effort, lungs clear to auscultation Cardiovascular: RRR, no murmur, no edema Gastrointestinal (Abdomen): normal bowel sounds, soft, nontender, no hepatosplenomegaly Skin: no rashes, warm and dry no jaundice Psychiatric: A+Ox3, euthymic affect Lymphatic: no lymphedema Results & Data ([facility]) Vital Signs (Past 12 Hours) Vital Signs Temp Pulse Resp BP Pulse Ox 08/27/19 07:14 36.7 C 91 H 18 115/71 94 08/27/19 03:01 36.8 C 117 H 16 96/62 L 95 08/26/19 23:16 36.7 C 97 H 16 128/76 93
--- NOTE | 2019-08-27 09:50 | Anesthesiology Consultation ---
Date of Service August 27, 2019 Assessment & Plan (1) Encounter for pre-operative examination: Chart Review Chart Review: Acceptable Risk for Surgery Consults Requested none ASA ASA3 Proposed Anesthesia Anesthesia Type: MAC Risk / Benefits Reviewed With: PT / POA / Parent / Guardian, Accepts Plan and Informed Consent Obtained History Surgery Operation Date: 08/25/19 17:35 Proposed Procedures p Esophagogastroduodenoscopy Dr John Burdick Operation Date: 08/26/19 16:00 Proposed Procedures p Colonoscopy Dr Wheatley and Small Bowel Enteroscopy - Augustina Wheatley MD Operation Date: 08/27/19 13:25 Proposed Procedures p Colonoscopy Dr Heavenly Burdick Height/Weight Height: 6 ft 1 in Weight: 97.5 kg Allergies Allergy/AdvReac Type Severity Reaction Status Date / Time No Known Allergies Allergy Unknown Verified 08/27/19 13:18 Medications Home Medications Medication Instructions Recorded Confirmed Last Taken amlodipine 10 mg PO DAILY 08/25/19 08/25/19 08/24/19 ascorbic acid (vitamin C) 1 g PO DAILY 08/25/19 08/25/19 08/24/19 aspirin 81 mg PO DAILY 08/25/19 08/25/19 08/24/19 atorvastatin 40 mg PO DAILY 08/25/19 08/25/19 08/24/19 calcium carbonate-vitamin D3 1 cap PO DAILY 08/25/19 08/25/19 08/24/19 [Calcium 600 + D(3)] ibuprofen 600 mg PO Q6H PRN 08/25/19 08/25/19 08/24/19 levothyroxine [Levoxyl] 175 mcg PO DAILY 08/25/19 08/25/19 08/24/19 losartan-hydrochlorothiazide 1 tab PO DAILY 08/25/19 08/25/19 08/24/19 metformin 1,000 mg PO QPM 08/25/19 08/25/19 08/24/19 metformin 500 mg PO QAM 08/25/19 08/25/19 08/24/19 multivitamin 1 tab PO DAILY 08/25/19 08/25/19 08/24/19 Active Medications Generic Name Dose Route Start Last Admin Trade Name Freq PRN Reason Stop Dose Admin Amlodipine Besylate 10 mg 08/25/19 09:00 08/26/19 08:00 Norvasc PO 09/24/19 08:59 10 mg DAILY [facility] Administration Atorvastatin Calcium 40 mg 08/25/19 09:00 08/27/19 08:00 Lipitor PO 09/24/19 08:59 40 mg DAILY [facility] Administration HCTZ/Losartan Potassium 1 tab 08/25/19 09:00 08/26/19 07:59 Hyzaar 50/12.5mg PO 09/24/19 08:59 1 tab DAILY [facility] Administration Insulin Aspart 0 units 08/25/19 07:30 08/27/19 12:50 Novolog Flexpen SC 09/24/19 07:29 Not Given ACHS [facility] Levothyroxine Sodium 175 mcg 08/25/19 07:00 08/27/19 03:52 Synthroid PO 09/24/19 06:59 175 mcg DAILYBB [facility] Administration NPO Date Last Intake of Fluids: 08/27/19 Time Last Intake of Fluids: 07:45 Date Last Intake of Solids: 08/24/19 Time Last Intake of Solids: 18:30 Past Medical History Medical History (Updated 08/27/19 @ 13:21 by Aron Loving DO) Diabetes Hypertension Hyperthyroidism Hypothyroidism Exercise / Class Metabolic Activity III < 4 Walking/Shop/Light housework Past Surgical History Surgical History (Updated 08/27/19 @ 09:49 by Aron Loving DO) History of esophagogastroduodenoscopy (EGD) Past Anesthesia History No Hx of Anesthesia Complications and No Family Hx of Anesthesia Complications History of PONV No Hx of PONV and No Hx of Motion Sickness Social History Smoking Status: Never smoker Do You Dip or Chew Tobacco: No Hx Alcohol Use: No Hx Substance Use: No Physical Exam Vital Signs Last Vital Signs Temp 99.3 F 08/27/19 10:54 Pulse 92 H 08/27/19 10:54 Resp 18 08/27/19 10:54 BP 116/74 08/27/19 10:54 Pulse Ox 97 08/27/19 10:54 ENMT Mouth: + dental restorations Thyromental Distance: > or= 3.5 Finger Breadths Mallampati Class: III Neck normal visual inspection Respiratory normal respiratory effort Auscultation: lungs clear to auscultation bilaterally Cardiovascular Rate/Rhythm: regular rate and regular rhythm Testing Laboratory Results 08/27/19 09:59 08/27/19 03:43 PT 10.7 Seconds (9.0-12.0) 08/25/19 07:45 INR 1.0 (0.9-1.1) 08/25/19 07:45 APTT 23.1 Seconds (21.0-31.0) 08/25/19 07:45 Hemoglobin A1c 6.4 % (4.5-5.6) H 08/26/19 05:48 Urine Color Yellow 08/25/19 03:40 Urine Appearance Clear (Clear) 08/25/19 03:40 Urine pH 5.5 (4.5-7.5) 08/25/19 03:40 Ur Specific [place] 1.022 (1.000-1.030) 08/25/19 03:40 Urine Protein Negative (Negative) 08/25/19 03:40 Urine Glucose (UA) Negative (Negative) 08/25/19 03:40 Urine Ketones Negative (Negative) 08/25/19 03:40 Urine Nitrite Negative (Negative) 08/25/19 03:40 Ur Leukocyte Esterase Negative (Negative) 08/25/19 03:40 Blood Type O Positive 08/26/19 20:30 Antibody Screen NEGATIVE 08/26/19 20:30 08/25/19 03:40 Escherichia coli Shiga Toxins Test - Preliminary Stool Stool Culture - Preliminary No Salmonella isolated to date, No Shigella isolated to date, No Campylobacter jejuni isolated to date. 08/27/19 08/27/19 11:16 07:21 POC Glucose 123 H 136 H Electrocardiogram Date: 08/27/19 Normal sinus rhythm, rate 91 bpm Right bundle branch block Abnormal ECG When compared with ECG of 26-AUG-2019 06:27, No significant change was found
[2019-08-27 10:13] LABS: Hematocrit (blood only) 28.5 % (42-52); Hemoglobin 9.8 g/dL (14.0-18.0)
[2019-08-27] MEDS ORDERED: PROPOFOL IV EMULSION 10 MG/ML 20 ML VIAL IV ONE (14:57)
--- NOTE | 2019-08-27 14:59 | GI REPORT ---
Patient Name: Danish Devi Procedure Date: 08/27/2019 1:56 PM Date of : 1955 Admit Type: Inpatient Age: 64 Gender: Male Attending MD: Rudy Burdick MD Procedure: Colonoscopy Providers: Rudy Burdick MD Referring MD: La Hernandez Indications: Rectal bleeding Medicines: See the Anesthesia note for documentation of the administered medications Complications: No immediate complications. Estimated Blood Loss: Estimated blood loss: none. Procedure: Pre-Anesthesia Assessment: - ASA Grade Assessment: III - A patient with severe systemic disease. After I obtained informed consent, the scope was passed under direct vision. Throughout the procedure, the patient's blood pressure, pulse, and oxygen saturations were monitored continuously. The scope was introduced through the anus and advanced to the terminal ileum. The colonoscopy was performed without difficulty. The patient tolerated the procedure well. The quality of the bowel preparation was poor. Findings: The perianal and digital rectal examinations were normal. The rectum was well examined, and there was no source of bleeding in the rectum. Multiple small and large-mouthed diverticula were found in the entire colon. There was a large amount of fresh red blood and clot throughout the entire colon. I spent 30 mins withdrawing the scope, lavaging and suctioning the retained blood. The source of bleeding could not be identified. Hemorrhoids on retroflexion. There was bilious fluid in the ileum. Impression: - Preparation of the colon was poor. - Diverticulosis in the entire examined colon. - Blood throughout the colon. Source not identified. Bilious fluid in the ileum suggests that this is a colonic bleed. Recommendation: - Discharge patient to floor. Transfer to [facility] with capacity for Jennifer Hannah MD 08/27/2019 2:59:20 PM This report has been signed electronically. Note Initiated On: 08/27/2019 1:56 PM Number of Addenda: 0 I attest to the content of the Intraoperative Record and orders documented therein, exceptions below {[id number]}
--- NOTE | 2019-08-27 15:59 | Discharge Summary ---
Date of Service August 27, 2019 Admission HPI Per Admitting Provider 64-year-old male with past medical history significant for type 2 diabetes, hypothyroidism, hyperlipidemia, testicular function, hypertension, obesity, arthritis of the knee on the left side, presents with melena and syncope. The patient states since Friday evening, he had a few of episodes of diarrhea with black stools. He thought it could be from the food related. His thought that he ate outside that could be food poisoning, but on Friday again he had a couple of episodes of melena and both the times in the late in the night around 11:00 p.m. went to bathroom moving his bowels and when he stood up, he passed out for a few seconds. After first episode of syncope he woke up, he was like sweaty and dizzy, feeling cold and went to sleep and again he had 1 more episode of diarrhea and the same thing happened and he called EMS and came here. His thinks water in the commode also looked pink. He is on aspirin and he also takes ibuprofen 600 mg in the morning and at night daily for many years for his arthritis of the lower extremities, but he does not have any abdominal pain, no nausea, no vomiting, no chest pain, no shortness of breath, no cough, no fever, no chills, no headache, no blurred vision, no earache, no runny nose, no sore throat. His appetite is okay. No dysphagia, no odynophagia. Currently resting comfortably and hemodynamically stable. Admission Exam Per Admitting Provider GENERAL: The patient is of moderate build, not in acute distress. VITAL SIGNS: Temperature 36.6, pulse 93, respiratory rate 21, blood pressure 135/80, oxygen 94% on room air. HEENT: No pallor, no icterus. Pupils equal, round, reactive to light. NECK: No JVD, no neck masses, no carotid bruits. CARDIOVASCULAR: S1, S2 heard, regular rate and rhythm, no murmur, no gallop. RESPIRATORY SYSTEM: Normal AP diameter. No accessory muscle use. No wheezing, no crackles. ABDOMEN: Soft, bowel sounds present, nontender. No distention. CENTRAL NERVOUS SYSTEM: Cranial nerves II-XII grossly intact. Nonfocal. EXTREMITIES: No edema, no erythema. Principal Diagnosis (1) GI Bleedf: (2) Anemia: (3) Hypokalemia: (4) Syncope: (5) HTN (hypertension): (6) DMII (diabetes mellitus, type 2): (7) Hypothyroidism: (8) QT prolongation: Discharge Exam See Below Discharge Data Allergies Allergy/AdvReac Type Severity Reaction Status Date / Time No Known Allergies Allergy Unknown Verified 08/27/19 13:18 Consultations 08/25/19 02:22 ED Decision to Admit Stat 08/25/19 06:42 Consult Case Management - Discharge Planning Routine 08/25/19 08:00 Consult Cardiology Routine Consult Gastroenterology Routine 08/27/19 15:55 Burn CD for patient Stat Procedures Performed Operation Date: 08/25/19 17:35 Actual Procedures p EGD Biopsy Cytology - Irjerry Pinedaa Operation Date: 08/26/19 16:00 Actual Procedures p Small Bowel Enteroscopy EGD - Augustina Wheatley MD s Colonoscopy - Augustina Wheatley MD Operation Date: 08/27/19 13:25 Actual Procedures p Colonoscopy - Rudy E Ritalightwala Current Diagnoses Anemia, unspecified (08/25/19) Hypothyroidism, unspecified (08/25/19) Type 2 diabetes mellitus without complications (08/25/19) Hypokalemia (08/25/19) Essential (primary) hypertension (08/25/19) Unspecified right bundle-branch block (08/25/19) Melena (08/25/19) Gastrointestinal hemorrhage, unspecified (08/25/19) Syncope and collapse (08/25/19) Abnormal electrocardiogram [ECG] [EKG] (08/25/19) Encounter for other preprocedural examination (08/25/19) Encounter for prophylactic measures, unspecified (08/25/19) Allergies No Known Allergies Allergy (Unknown, Verified 08/27/19 13:18) Height/Weight/Isolation Height 6 ft 1 in Weight 97.5 kg Chemistry 08/26/19 08/26/19 08/26/19 05:48 07:02 16:04 Sodium 139 Potassium 3.2 L 3.3 L Chloride 108 H Carbon Dioxide 26 Anion Gap 5.0 BUN 9 D Creatinine 0.78 Glucose 130 H 08/27/19 03:43 Sodium 139 Potassium 4.0 D Chloride 107 Carbon Dioxide 28 Anion Gap 4.0 BUN 10 Creatinine 0.84 Glucose 129 H Microbiology 08/25/19 03:40 Stool Escherichia coli Shiga Toxins Test - Preliminary 08/25/19 03:40 Stool Stool Culture - Preliminary No Salmonella isolated to date, No Shigella isolated to date, No Campylobacter jejuni isolated to date. Hospital Course (1) Melena: 2/2 GI blood loss. EGD was normal. Protonix drip was stopped. H/H relatively stable. Bleeding scan noted-There is early arterial tracer accumulation within the central lower pelvis which is likely within the rectum suggestive of acute GI bleed. Transfer to [facility], s/p colonoscopy "Active Bleed, Blood Every where, Transfer to tertiary Center" IR at [facility] accepted. Has a bed already (2) Anemia: acute blood loss anemia. No indication for transfusion at this time. Hb stable (3) Hypokalemia: Goal 4-5 per Cardiology recommendations in setting of prolonged QTc. (4) Syncope: Was likely related related to a combination of orthostasis with acute blood loss from GI bleed and with a vasovagal component. (5) HTN (hypertension): Cont Hyzaar and Norvasc c parameters (6) DMII (diabetes mellitus, type 2): controlled, cont insulin as needed. (7) Hypothyroidism: Cont Synthroid per home regimen. (8) QT prolongation: Monitor potassium. (9) DVT prophylaxis: SCDs ambulation, chemoprophylaxis contraindicated in active bleeding FULL Dispo- [facility] today Dr Mason accepted May Need IR for coiling ROS-No Headache, No Visual Changes, No Nausea, No Vomiting, No Fever, No Chills, No Neck Pain or Stiffness, No Chest Pain, No Palpitations, No SOB, No RAMOS, No Cough, No Sputum, No Wheezing, No Abdominal Pain, No Diarrhea, No Hematemesis, No Hemoptysis, No Unexpected Weight Loss, No Flank pain, No Melena, No Hematochezia, No Frequency, No Urgency, No Burning, No Hematuria, No Rashes, No Diaphoresis. Appetite is Normal Physical Exam Gen-AAO x 3, NAD, Afebrile Head-NCAT, EOMI, PERRLA, Anicteric Sclera, No Posterior Pharyngeal Erythema Neck-Supple, No JVD, No Thyromegaly, No Masses, No LAD, No Bruits Lungs-Clear to Auscultation Bilaterally, No Rales, No Rhonchi, No Wheezing, No Crepitus Chest-No S4, +S1, +S2, No S3, No Murmurs, No Rubs, No Gallops, No Ectopy Abdomen-Soft, Bowel Sounds Present, Non Tender, Non Distended, No Hepatomegaly, No Splenomegaly, No Palpable Masses, No Rebound, No Rigidity, No Guarding Musculoskeletal-Full Range of Motion Bilaterally, No CVAT Extremities-No Cyanosis, No Clubbing, No Edema Nuero-Cranial Nerves II-XII grossly intact, Motor WNL, DTRs WNL, Strength WNL, Non Focal Psych-Normal Mood Total Time Total Time Spent Total Time Spent (In Minutes): 65 mins Total Time Includes: Examination of the Patient, Discharge Planning, Medication Reconciliation and Communication With Other Providers Discharge Plan Discharge Items Patient Disposition: Transfer Acute Care Hospital Reason For Visit: SYNCOPE, MELENA Discharge Diagnosis: (1) GI Bleedf: (2) Anemia: (3) Hypokalemia: (4) Syncope: (5) HTN (hypertension): (6) DMII (diabetes mellitus, type 2): (7) Hypothyroidism: (8) QT prolongation Condition on Discharge: Good Health Concerns: Continuing GI Bleeding Goals: IR for possible Coiling Activity: As commented below Activity Comment: Ad Pratima Lifting: None Bathing: No limitations Exercise/Sports: None Driving/Machine Use: No limitations Weightbearing: Full weightbearing Non-emergency contact: Specialist Call non-emergency contact if: you have any medication questions Follow-up/Referrals: La Hernandez DO [Primary Care Provider] - Diet: Nothing by Mouth Addtl Attending Provider Instructions: Serial H&Hs Pending Studies at Discharge: No Stand-Alone Forms: My [facility] Skilled Items Patient informed of condition?: Yes DNR: No Discharge Level of Care: Other Communicable Disease: No Discharge Prognosis: Stable Lines: Peripheral IV Urinary Catheter: No Medications and DC Order Prescriptions: Continued atorvastatin 40 mg tablet 40 mg PO DAILY RF: 0 levothyroxine [Levoxyl] 175 mcg tablet 175 mcg PO DAILY RF: 0 amlodipine 10 mg tablet 10 mg PO DAILY RF: 0 losartan-hydrochlorothiazide 50-12.5 mg tablet 1 tab PO DAILY RF: 0 Calcium 600 + D(3) 600 mg calcium- 200 unit Capsule 1 cap PO DAILY RF: 0 Discontinued multivitamin Tablet 1 tab PO DAILY RF: 0 ascorbic acid (vitamin C) 1,000 mg Tablet 1 g PO DAILY RF: 0 aspirin 81 mg Tablet,Delayed Release (Dr/Ec) 81 mg PO DAILY RF: 0 ibuprofen 600 mg Tablet 600 mg PO Q6H PRN (Reason: Pain) RF: 0 metformin 500 mg tablet extended release 24 hr 1,000 mg PO QPM RF: 0 metformin 500 mg tablet extended release 24 hr 500 mg PO QAM RF: 0 Discharge Orders: Discharge Order (Routine); Ordered 08/27/19 Ordered By: Trae Talavera Admission Data Admit Date/Time: 08/25/19 03:34 Attending Provider: Trae Talavera Admit Provider: Clayton Cardoso Primary Care Provider: La Hernandez Other Providers: Clayton Cardoso ; Alfredito Wagner ; Checo Young ; Shimon Harrington ; Mundo Hernandez ; Baljinder Andrea ; Jamel Galan ; Tabitha Mary ; Farhana Claire ; Nilesh Mosqueda ; Phil Flower ; Nicolasa Pickard ; Della Zimmerman ; Sammi Fountani ; Andrae Toribio ; Carolina Cavanaugh ; Rudy Burdick ; Patti Quesada ; Tae Maza ; Tin Swanson ; Ximena Schaeffer ; Carina Zaldivar ; Michelle Lezama ; Lupis Maradiaga ; Augustina Wheatley
--- NOTE | 2019-08-27 16:23 | Anesthesiology Progress Note ---
Date of Service August 27, 2019 Anesthesia Post Procedure Vital Signs Vital Signs: Temp Pulse Pulse Resp BP Pulse Ox 08/27/19 15:33 90 16 117/72 96 08/27/19 15:18 85 16 123/76 96 08/27/19 14:58 90 16 119/79 96 08/27/19 13:21 37.0 C 94 H 16 133/80 94 08/27/19 10:54 37.4 C 92 H 18 116/74 97 08/27/19 08:00 98 H 08/27/19 07:14 36.7 C 91 H 18 115/71 94 08/27/19 03:01 36.8 C 117 H 16 96/62 L 95 08/26/19 23:16 36.7 C 97 H 16 128/76 93 08/26/19 19:46 117 H 19 109/74 97 Transfer of Care Handoff Completed per policy Notes Mental Status: alert / awake / arousable Patient Amnestic to Procedure: Yes Nausea / Vomiting: adequately controlled Pain: adequately controlled Airway Patency, RR, SpO2: stable & adequate BP & HR: stable & adequate Hydration State: stable & adequate Anesthetic Complications: no major complications apparent
--- NOTE | 2019-08-27 18:32 | Electrocardiogram Report ---
Test Reason : Blood Pressure : / mmHG Vent. Rate : 091 BPM Atrial Rate : 091 BPM P-R Int : 164 ms QRS Dur : 166 ms QT Int : 422 ms P-R-T Axes : 064 060 038 degrees QTc Int : 519 ms Normal sinus rhythm Right bundle branch block Abnormal ECG When compared with ECG of 26-AUG-2019 06:27, No significant change was found Confirmed by Chong Fox ([id number]) on 08/27/2019 6:32:38 PM Referred By: REFERRED SELF Confirmed By:Daryn Fox
== END 2019-08-27 21:15 | disposition short-term general hospital (02) | DRG 378 ==
LOC: ED 01:01 → SUATTDRO 03:34 → EDINP 03:34 → 2S 06:20

== ENCOUNTER 2020-01-12 05:11 | Inpatient (IN) ==
--- NOTE | 2019-12-15 10:58 | PAT Medication Instructions ---
Medication Instructions Date of Service December 15, 2019 Home Medications Calcium 600 + D(3) 1 cap PO QAM amlodipine 10 mg PO QAM atorvastatin 40 mg PO QPM levothyroxine [Levoxyl] 175 mcg PO QAM losartan-hydrochlorothiazide 1 tab PO QAM acetaminophen-codeine [Tylenol-Codeine #3] 1 tab PO BID PRN ascorbic acid (vitamin C) 1,000 mg PO QAM ferrous sulfate 325 mg PO QAM metformin 500 - 1,000 mg PO BID multivitamin 1 tab PO QAM DO NOT take the morning of surgery Calcium 600 + D(3) 1 cap PO QAM losartan-hydrochlorothiazide 1 tab PO QAM ascorbic acid (vitamin C) 1,000 mg PO QAM ferrous sulfate 325 mg PO QAM metformin 500 - 1,000 mg PO BID multivitamin 1 tab PO QAM Take morning of surgery With a small sip of water, OTHERWISE NOTHING TO EAT OR DRINK AFTER MIDNIGHT: amlodipine 10 mg PO QAM levothyroxine [Levoxyl] 175 mcg PO QAM acetaminophen-codeine [Tylenol-Codeine #3] 1 tab PO BID PRN (if needed, may be taken up to four hours before surgery) Take evening before surgery atorvastatin 40 mg PO QPM acetaminophen-codeine [Tylenol-Codeine #3] 1 tab PO BID PRN (if needed) metformin 500 - 1,000 mg PO BID Other Notes If you have any questions please call us at [phone] or [phone] or [phone] or [phone]
--- NOTE | 2019-12-17 13:40 | History & Physical Report ---
Date of Service December 17, 2019 date of surgery: 01-12-20 Assessment & Plan (1) Arthritis of knee, left: Risks and benefits of procedure discussed in detail today, patient would like to proceed with a Left total knee replacement at [facility] as scheduled. will obtain medical clearance prior to surgery as well as obtain PATs at [facility]. Will place on ASA 81mg po bid x 1 month post op, he did have GI bleed a few months ago that was worked up but no origin, no current symptoms and no previous issues. f/u 2 weeks post op for routine post-operative care and x-ray, sooner if having any problems. will make arrangements for HHPT at the time of discharge. At this point in time, has failed conservative measures and would like to proceed with surgical intervention. The risks and benefits have been discussed including, but not limited to, risk of infection, nerve injury, stiffness, loss of motion, failure to improve, etc. Reasonable outcomes and options of treatment were discussed. An explanation of appropriate alternatives to the procedure that may be advantageous were discussed and their risks and benefits, as well as the risks and benefits of not proceeding with treatment. I offered to answer any additional inquiries concerning the treatment involved. All the patient's questions were answered. The patient is agreeable, understanding of the treatment plan and alternatives, and wishes to proceed with the treatment plan. History of Present Illness Chief Complaint: left knee pain Primary Care Provider: La Hernandez DO Mr Devi is a 64 year old male who complains of left knee pain, presents for pre op eval prior to a left total knee replacement at [facility]. He presents with pain and stiffness on the left side. His symptoms occur constantly with intermittent worsening. Currently the patient states that the symptoms are moderate. The pain is described as aching and throbbing. He rates his current pain as 5/10. The symptoms are aggravated by daily activities, walking standing and stairs. unable to take NSAIDs due to recent GI Bleed. has had prior visco injections with only mild relief. Allergies Allergy/AdvReac Type Severity Reaction Status Date / Time No Known Allergies Allergy Unknown Verified 12/10/19 09:26 Home Medications Home Medications Medication Instructions Recorded Confirmed Type Calcium 600 + D(3) 1 cap PO QAM 08/25/19 12/10/19 History amlodipine 10 mg PO QAM 08/25/19 12/10/19 History atorvastatin 40 mg PO QPM 08/25/19 12/10/19 History levothyroxine [Levoxyl] 175 mcg PO QAM 08/25/19 12/10/19 History losartan-hydrochlorothiazide 1 tab PO QAM 08/25/19 12/10/19 History acetaminophen-codeine 1 tab PO BID PRN 12/10/19 12/10/19 History [Tylenol-Codeine #3] ascorbic acid (vitamin C) [Vitamin 1,000 mg PO QAM 12/10/19 12/10/19 History C] ferrous sulfate 325 mg PO QAM 12/10/19 12/10/19 History metformin 500 - 1,000 mg PO BID 12/10/19 12/10/19 History multivitamin 1 tab PO QAM 12/10/19 12/10/19 History Past Med/Surg History Medical History Diabetes TYPE 2 GI bleed HX 08/2019-[facility] Heart abnormality 08/2019 [facility] ADMISSION FOR GI BLEED-DEVELOPED LONG QT INTERVAL/RESOLVED IN HOSPITAL Hypertension Hyperthyroidism Hypothyroidism Osteoarthritis Surgical History Fusion of spine CERVICAL-1999 History of colonoscopy History of esophagogastroduodenoscopy (EGD) History of repair of rotator cuff LEFT 2016 History of tonsillectomy History of total knee replacement RIGHT 2003 Hx of knee surgery OPEN RIGHT KNEE X 2 Social History Preferred Language: Chinese Communication Ability: Effective [employer] Cook Required: No Beliefs That Will Affect Care: None marital status: Current Living Situation: Spouse Other Information That Helps Us Care for You: No Feels Safe at Home: Yes Safety Concerns: Feels Safe At This Time Smoking Status: Never smoker Do You Dip or Chew Tobacco: No ; Second Hand Exposure: No ; Hx Alcohol Use: Yes Alcohol type: wine Hx Substance Use: No Review of Systems Review of Systems: All systems reviewed & are unremarkable except as noted in HPI & below Constitutional: no fever, no chills and no sweats Respiratory: no cough and no dyspnea Cardiovascular: no chest pain, no dyspnea and no orthopnea Gastrointestinal: no abdominal pain, no nausea and no vomiting Musculoskeletal: as per Subjective / HPI Physical Exam Physical Exam: Ht: 6ft 1in Wt: 97.5kg BP: 126/72 Constitutional: WD/WN, vitals as above no acute distress Respiratory: normal respiratory effort, lungs clear to auscultation no respiratory distress, no labored breathing and does not use accessory muscles Cardiovascular: RRR, no murmur, no edema Gastrointestinal (Abdomen): normal bowel sounds, soft, nontender, no hepatosplenomegaly Musculoskeletal: Knee: + knee abnormal to inspection (left knee), + effusion (+1 effusion), + limited ROM of knee (ROM 0/3/110), + knee ROM with crepitation, + joint line tenderness (medial joint line) and + Mariposa's sign positive; no deformity, no skin erythema, no ecchymosis, no valgus laxity, no varus laxity, anterior drawer test negative, Adriana's sign negative and pivot shift test negative Results & Data Results & Data ([facility]) Diagnostic Findings Left Knee X-ray: left knee series confirm advanced degenerative changes to the left knee, greatest medial compartments and patellofemoral joint, showing joint space narrowing, osteophyte formation and subchondral sclerosis. no acute bony pathology noted.
--- NOTE | 2019-12-17 15:07 | Anesthesiology Consultation ---
Date of Service December 17, 2019 Assessment & Plan (1) Encounter for pre-operative examination: COVID Status: As of 12/15 nurse assessment, patient denies travel to endemic area, known exposure/sick contacts, or symptoms of COVID19. Preoperative COVID19 testing to be completed prior to surgery. Chart Review Chart Review: Acceptable Risk for Surgery (pending surgeon-ordered PCP clearance) and Patient seen in Pre Admission Testing Teaching & Discussion Instructed NPO after midnight before surgery, except medications with 15 cc of water. Medication instructions provided according to the PAT guidelines. History Surgery Operation Date: 01/12/20 11:15 Proposed Procedures p Left Total Knee Arthroplasty - Mundo Avila DO Height/Weight Height: 6 ft 1 in Weight: 102.1 kg Allergies Allergy/AdvReac Type Severity Reaction Status Date / Time No Known Allergies Allergy Unknown Verified 12/10/19 09:26 Medications Home Medications Medication Instructions Recorded Confirmed Last Taken Calcium 600 + D(3) 1 cap PO QAM 08/25/19 12/10/19 08/24/19 amlodipine 10 mg PO QAM 08/25/19 12/10/19 08/24/19 atorvastatin 40 mg PO QPM 08/25/19 12/10/19 08/24/19 levothyroxine [Levoxyl] 175 mcg PO QAM 08/25/19 12/10/19 08/24/19 losartan-hydrochlorothiazide 1 tab PO QAM 08/25/19 12/10/19 08/24/19 acetaminophen-codeine 1 tab PO BID PRN 12/10/19 12/10/19 Unknown [Tylenol-Codeine #3] ascorbic acid (vitamin C) [Vitamin 1,000 mg PO QAM 12/10/19 12/10/19 Unknown C] ferrous sulfate 325 mg PO QAM 12/10/19 12/10/19 Unknown metformin 500 - 1,000 mg PO BID 12/10/19 12/10/19 Unknown multivitamin 1 tab PO QAM 12/10/19 12/10/19 Unknown Past Medical History Medical History Diabetes TYPE 2 GI bleed HX 08/2019-[facility] Hypertension Hypothyroidism Osteoarthritis Prolonged QT interval While hospitalized 07/2019 for GI bleed with electrolyte abnormalities. QT length corrected with electrolyte correction. Exercise / Class Metabolic Activity II 4-5 Yardwork/Stairs/Walk up hill Past Surgical History Surgical History Fusion of spine CERVICAL-1999 History of colonoscopy History of esophagogastroduodenoscopy (EGD) History of repair of rotator cuff LEFT 2017 History of tonsillectomy History of total knee replacement RIGHT 2004 Hx of knee surgery OPEN RIGHT KNEE X 2 Past Anesthesia History No Hx of Anesthesia Complications and No Family Hx of Anesthesia Complications History of PONV No Hx of PONV and Hx of Motion Sickness Social History Smoking Status: Never smoker Do You Dip or Chew Tobacco: No Hx Alcohol Use: Yes Alcohol type: wine alcohol intake frequency: a few times a week Hx Substance Use: No Review of Systems Pt denies any recent chest pain, shortness of breath, palpitations, cough, fever or URI. Physical Exam Vital Signs BP: 123/79 P: 84bpm SPO2: 95% RA T: 98.5 F R: 12 ENMT Mouth: + dental restorations (many gold caps); no chipped teeth and no loose teeth Thyromental Distance: > or= 3.5 Finger Breadths (3.5) Mallampati Class: I Neck normal visual inspection and + facial hair (short larose, amenable to shaving prior to surgery); neck extension not limited Respiratory normal respiratory effort Auscultation: lungs clear to auscultation bilaterally Cardiovascular Rate/Rhythm: regular rate and regular rhythm Heart Sounds: no murmur Extremities: no edema Testing Laboratory Results 12/17/19 15:26 12/17/19 15:26 PT 10.4 Seconds (9.0-12.0) 12/17/19 15:26 INR 1.0 (0.9-1.1) 12/17/19 15:26 APTT 27.1 Seconds (21.0-31.0) 12/17/19 15:26 Hemoglobin A1c 7.1 % (4.5-5.6) H 12/17/19 15:26 Urine Color Yellow 12/17/19 Unknown Urine Appearance Clear (Clear) 12/17/19 Unknown Urine pH 6.0 (4.5-7.5) 12/17/19 Unknown Ur Specific [place] 1.020 (1.000-1.030) 12/17/19 Unknown Urine Protein Negative (Negative) 12/17/19 Unknown Urine Glucose (UA) Negative (Negative) 12/17/19 Unknown Urine Ketones Negative (Negative) 12/17/19 Unknown Urine Nitrite Negative (Negative) 12/17/19 Unknown Ur Leukocyte Esterase Negative (Negative) 12/17/19 Unknown Blood Type O Positive 12/17/19 15:26 Antibody Screen NEGATIVE 12/17/19 15:26 12/17/19 Unknown Urine Culture - Final Urine,Clean Catch Gram positive cocci Electrocardiogram Date: 08/26/19 Findings: + NSR @ (99bpm), + RBBB and + no change from (08/25/19) Chest X-Ray Date: 12/17/19 Findings: + NAD Echocardiogram Date: 08/25/19 EF: 55-60% RWMA: + none Other Findings: + LVH (mild concentric) and + diastolic dysfunction (grade II) Septal wall motion is consistent with conduction abnormality. Mild AV sclerosis, no significant stenosis.
--- NOTE | 2019-12-17 15:54 | XRay Report ---
XR chest Pre-admission PA/Lat HISTORY: 64 years-old Male pat preoperative exam. No acute chest complaints COMPARISON: None TECHNIQUE: PA and lateral views of the chest FINDINGS: Cardiac mediastinal and hilar silhouettes are within normal limits. No pneumothorax, pleural effusion , airspace consolidation or overt pulmonary edema. Bones of the chest appear grossly intact. Degenera tive changes of the shoulders and spine. IMPRESSION: No acute process. ACT 112: Negative or not required by law. The above report was generated using voice recognition software. It may contain grammatical, syntax o r spelling errors. Electronically signed by: Quinton Garcia M.D. 12/17/2019 3:53 PM
[2019-12-17 16:01] LABS: Basophils # (auto) 0.01 K/uL (0-0.2); Basophils % (auto) 0.1 %; Eosinophils % (auto) 4.5 %; Hematocrit (blood only) 47.1 % (42-52); Hemoglobin 16.2 g/dL (14.0-18.0); Immature Granulocytes # (auto) 0.01 K/uL (0.00-0.02); Immature Granulocytes % (auto) 0.1 %; Lymphocytes % (auto) 41.8 %; Mean Corpuscular Hemoglobin 29.1 pg (25-34); Mean Corpuscular Hgb Conc 34.4 g/dL (32-36); Mean Corpuscular Volume 84.7 fL (80-100); Monocytes # (auto) 0.54 K/uL (0.11-0.59); Monocytes % (auto) 8.1 %; Neutrophils # (auto) 3.04 K/uL (1.4-6.5); Neutrophils % (auto) 45.4 %; Platelet Count 251 K/uL (130-400); RDW Coefficient of Variation 13.1 % (11.5-14.5); RDW Standard Deviation 40.2 fL (36.4-46.3); Red Blood Count 5.56 M/uL (4.7-6.1)
[2019-12-17 16:02] LABS: Appearance Urine Clear (Clear); Bilirubin Urine Negative (Negative); Blood Urine Negative (Negative); Color Urine Yellow; Glucose Urine UA Negative (Negative); Ketones Urine Negative (Negative); Leukocyte Esterase Urine Negative (Negative); Nitrite Urine Negative (Negative); Protein Urine Negative (Negative); Urobilinogen Urine Negative (Negative)
[2019-12-17 16:17] LABS: Albumin Level 3.9 gm/dl (3.4-5.0); BUN Creatinine Ratio 16.3 (10-20); Calcium 8.9 mg/dl (8.5-10.1); Creatinine Clr Calc Pharmacy 89.5 ml/min; Est GFR (African American) 88.4; Est GFR (Non-African American) 76.2; Potassium 4.1 mmol/L (3.5-5.1)
[2019-12-17 16:51] LABS: Partial Thromboplastin Time 27.1 Seconds (21.0-31.0); Prothrombin Time 10.4 Seconds (9.0-12.0)
[2019-12-18 06:39] LABS: Estimated Average Glucose 157 mg/dl; Hemoglobin A1C 7.1 % (4.5-5.6)
[2020-01-12] MEDS ORDERED: ROPIVACAINE 0.5% HCL/PF 150 MG, BUPIVACAINE 0.5% MPF 30 ML, EPINEPHrine 30MG/30ML (OR U... INSTIL SCH (06:00)
[2020-01-12] MEDS ORDERED: FAMOTIDINE 20 MG TAB PO SCH (06:00)
[2020-01-12] MEDS ORDERED: METOCLOPRAMIDE HCL 10 MG TABLET PO SCH (06:00)
[2020-01-12] MEDS ORDERED: dexAMETHasone 4 MG TAB PO SCH (06:00)
[2020-01-12] MEDS ORDERED: GABAPENTIN 300 MG CAP PO SCH (06:00)
[2020-01-12] MEDS ORDERED: ACETAMINOPHEN 500 MG TAB PO SCH (06:00)
[2020-01-12] MEDS ORDERED: CEFAZOLIN 2000MG 2,000 MG/15 ML SYR IV SCH (06:00)
[2020-01-12] MEDS ORDERED: TRANEXAMIC ACID / 0.7% NACL 1,000 MG/100 ML BAG IV SCH (06:00)
[2020-01-12] MEDS ORDERED: LR 500ML BOLUS, THEN 15ML/HR IV SCH (06:00)
[2020-01-12] MEDS ORDERED: CeleBREX 200 MG CAP PO SCH (06:00)
[2020-01-12] MEDS ORDERED: TRANEXAMIC ACID 1,000 MG **IV Intra-op IV SCH (06:00)
[2020-01-12] MEDS ORDERED: BUPIVACAINE 0.5 % 5 MG/1 ML PF 10ML VIAL ONE (06:25)
[2020-01-12] MEDS ORDERED: EPINEPHrine INJ 1 MG/ML AMP ONE (06:25)
[2020-01-12] MEDS ORDERED: ROPIVACAINE 0.5% 5 MG/ML 30 ML VIAL ONE (06:25)
[2020-01-12] MEDS ORDERED: LIDOCAINE HCL 2% 2 ML VIAL/AMP(20MG/ML) INFIL ONE (06:40)
[2020-01-12] MEDS ORDERED: MIDAZOLAM HCL 1 MG/ML 2ML VIAL ONE (06:40)
[2020-01-12] MEDS ORDERED: PROPOFOL IV EMULSION 10 MG/ML 20 ML VIAL IV ONE (06:40)
[2020-01-12] MEDS ORDERED: BACITRACIN INJ 50,000 UNIT VIAL ONE (06:43)
[2020-01-12] MEDS ORDERED: ORTHO JOINT ANESTHETIC ONE (06:43)
--- NOTE | 2020-01-12 07:14 | History & Physical Bridge Note ---
Date of Service January 12, 2020 History & Physical Bridge Note I have examined the patient, reviewed the History & Physical and in the interval since the performance of the History & Physical I have noted the following changes of clinical significance: no changes noted
[2020-01-12] MEDS ORDERED: NALOXONE HCL 0.4 MG/1 ML VIAL/CARP IV PRN ×2 (07:29→09:44)
[2020-01-12] MEDS ORDERED: ONDANSETRON INJ 2 MG/ML 2 ML VIAL IV PRN ×2 (07:29→09:44)
[2020-01-12] MEDS ORDERED: fentaNYL citrate 100 MCG/2 ML VIAL IV PRN (07:29)
[2020-01-12] MEDS ORDERED: ATROPINE SULFATE 0.1 MG/ML 10ML SYR IV PRN (07:29)
[2020-01-12] MEDS ORDERED: PROMETHAZINE HCL 12.5 MG in SODIUM CHLORIDE 0.9% 50 ML IV PRN (07:29)
[2020-01-12] MEDS ORDERED: ePHEDrine sulfate 50 MG/ML AMP IV PRN (07:29)
[2020-01-12] MEDS ORDERED: FLUMAZENIL 0.1 MG/1 ML 10 ML VIAL IV PRN (07:29)
--- NOTE | 2020-01-12 08:23 | Operative Report ---
Post Operative Report Pre & Post Diagnosis Operation Date: 01/12/20 07:00 Pre-Op Diagnosis: Left Knee Osteoarthritis Post-Op Diagnosis: Left Knee Osteoarthritis I identified the patient and participated in the time-out.: Yes Procedure Operation Date: 01/12/20 07:00 Actual Procedures p Left Total Knee Arthroplasty(Left)Utilizing [employer] journey 2 patient matched total knee arthroplasty size 8 femur 6 tibia 9 polyethylene 32 oval patella - Mundo Avila DO Surgeon Mundo Avila DO Cloud Developer MITALI Dennison Estimated Blood Loss 5 Findings Consistent with Post-Op Diagnosis Patient presents with severe end-stage tricompartmental degenerative joint disease left knee with severe varus alignment subchondral sclerosis marginal osteophytes large effusion eburnated aiet-up-dkau Specimens Bone and cartilage Drains Medium bore Hemovac Anesthesia Type MAC Spinal Regional Disposition Accompanied Patient To Recovery: No Disposition: Recovery Room Indications Patient presents after failed attempted conservative management clinic physical therapy anti-inflammatories relative rest activity modification corticosteroid injections Visco supplementations the above intraoperative findings noted time surgery. Description of Procedure After proper prepping and draping of the left lower extremity anterior midline incision was made over the region of the extensor extensor mechanism after meticulous hemostasis was obtained and maintained in subcutaneous tissues a medial parapatellar incision was made The patella was subluxed lateralward the medial lateral gutter were cleaned from any hypertrophic synovitis and scar tissue of the distal femoral block was placed and the distal femoral osteotomy cut was made subsequently the chamfers anterior and posterior osteotomy cuts were made utilizing the 4-in-1 block the tibia was subsequently subluxed anteriorward medial and ateral meniscal remnants were excised in their entirety remnants of the anterior and posterior cruciate ligaments were excised in their entirety excellent exposure of the proximal tibia was obtained the tibial osteotomy guide was placed on the proximal tibial osteotomy cut was made once again the knee was irrigated with copious amounts of sterile saline solution the patella was subsequently everted lateralward thickened scar tissue around the patella was removed the patella was subsequently cut utilizing a freehand technique and was drilled prepared for final preparation and placement of patella socially flexion-extension gaps were checked and the equal and symmetric trials were placed to the appropriate femoral and tibial trials with poly-spacer being placed for equal flexion and extension gaps and full range of motion including extension to 0 and flexion to 140 the trial components after having been taken to recovery range of motion was subsequently removed meticulous hemostasis was obtained and maintained subsequently a knee block injection of joint cocktail including ropivacaine 0.5% 150 mg. Bupivacaine 0.5% epinephrine 1-200,030 mL's toradol 30 mg dexamethasone 4 mg ketamine 10 mg clonidine 100 micrograms normal saline solution 30 mg was infiltrated into the soft tissues of the posterior knee medial lateral gutters and periosteal synovium special attention was paid to protect neurovascular structures at all times subsequently trial components having been removed the knee was irrigated with sterile saline solution. debris was removed the proximal tibia was subsequently prepared and was made ready for the placement of the tibial component tibial component was also cemented and tamped into position the femoral component was subsequently placed and cemented in the position the patellar component was subsequently cemented in position because hemostasis once again obtained and maintained wound having been thoroughly irrigated with debridement and debridement lavage was performed as well as a medial parapatellar incision closed with #1 Vicryl in interrupted fashion subcutaneous was closed with #2 Vicryl skin was closed with skin clips. PA-C was necessary for prepping and drapping as well as wound closure of deep fascia Sub cutaneous tissue and skin and was necessary for the case. A sterile compressive dressing was placed patient was taken to recovery in stable condition of report dictated by Austin I attest to the content of the Intraoperative Record and any orders documented therein. Any exceptions are noted below. I attest to the content of the Intraoperative Record and any orders documented therein. Any exceptions are noted below.
--- NOTE | 2020-01-12 09:23 | Anesthesiology Progress Note ---
Date of Service January 12, 2020 Anesthesia Post Procedure Vital Signs Vital Signs: Temp Pulse Pulse Resp BP BP Pulse Ox 01/12/20 09:15 36.3 C L 92 H 16 123/75 97 01/12/20 09:05 87 16 118/65 97 01/12/20 08:57 36.4 C L 90 16 113/62 98 01/12/20 06:56 74 20 138/86 94 01/12/20 05:58 36.7 C 76 20 144/91 H 97 Transfer of Care Handoff Completed per policy Notes Mental Status: alert / awake / arousable Patient Amnestic to Procedure: Yes Nausea / Vomiting: adequately controlled Pain: adequately controlled Airway Patency, RR, SpO2: stable & adequate BP & HR: stable & adequate Hydration State: stable & adequate Neuraxial Anesthesia: was administered and sensory block is resolving Anesthetic Complications: no major complications apparent
--- NOTE | 2020-01-12 09:30 | XRay Report ---
XR knee LT 1 or 2V routine CLINICAL HISTORY: Surgical Post Op COMPARISON: None DISCUSSION: There are postsurgical changes of a total left knee arthroplasty and patellar resurfacing . The femoral tibial components appear well seated. There is an overlying surgical drain. Gas in the soft tissues consistent with recent surgery. There is bony overgrowth of the anterior tibial tuberosi ty. IMPRESSION: Postsurgical changes of a total left knee arthroplasty. ACT 112: Negative or not required by law. Electronically signed by: Zach Garibay M.D. 01/12/2020 9:28 AM
[2020-01-12] MEDS ORDERED: METOCLOPRAMIDE HCL INJ 5 MG/ML 2 ML VIAL IV PRN (09:44)
[2020-01-12] MEDS ORDERED: MAGNESIUM HYDROXIDE SUSP 30 ML UDC PO PRN (09:44)
[2020-01-12] MEDS ORDERED: HYDROmorphone INJ 1 MG/ML SYRINGE IV PRN (09:44)
[2020-01-12] MEDS ORDERED: bisacodyL 10 MG SUPP PR PRN (09:44)
[2020-01-12] MEDS ORDERED: PHARMACY GLYCEMIC MGMT CONSULT PRN (10:00)
[2020-01-12] MEDS: SODIUM CHLORIDE 0.9% 1000ML 1,000 ML IV SCH ×2 (10:15→20:04)
[2020-01-12] MEDS ORDERED: GLUCOSE 10 TABS/TUBE PO PRN (10:30)
[2020-01-12] MEDS ORDERED: GLUCOSE 40% GEL 15 GM TUBE PO PRN (10:30)
[2020-01-12] MEDS ORDERED: GLUCAGON FOR INJ 1 MG VIAL IM PRN (10:30)
[2020-01-12] MEDS ORDERED: CARBOHYDRATES FOR HYPOGLYCEMIA PO PRN (10:30)
[2020-01-12] MEDS ORDERED: DEXTROSE 50% 50 ML SYRINGE IV PRN (10:30)
[2020-01-12] MEDS: LEVOTHYROXINE SODIUM 175 MCG TABLET PO SCH (11:11)
[2020-01-12] MEDS: AMLODIPINE BESYLATE 5 MG TAB PO SCH (11:12)
[2020-01-12] MEDS: FERROUS SULFATE 325 MG TAB PO SCH (11:13)
[2020-01-12] MEDS: MULTIVITAMIN TAB PO SCH (11:14)
[2020-01-12] MEDS: DOCUSATE SODIUM 100 MG CAP PO SCH ×2 (11:14→20:05)
[2020-01-12] MEDS: ASPIRIN 81 MG ECTAB PO SCH ×2 (11:14→20:05)
[2020-01-12] MEDS: KETOROLAC TROMETHAMINE 15 MG/ML VIAL IV SCH ×3 (11:15→23:28)
[2020-01-12] MEDS: CEFAZOLIN 2000MG 2,000 MG/15 ML SYR IV SCH ×2 (11:18→19:41)
[2020-01-12] MEDS ORDERED: NovoLIN-N (NPH) PER UNIT CHARGE SQ ONE (11:30)
[2020-01-12] MEDS: INSULIN ASPART 100 UNITS/ML 3 ML PEN SC SCH ×3 (12:43→21:39)
[2020-01-12] MEDS: ACETAMINOPHEN 500 MG TAB PO SCH ×2 (13:34→21:38)
[2020-01-12] MEDS: OXYCODONE HCL IR 5 MG TAB (IMMEDIATE RELEASE) PO PRN ×2 (14:30→21:37)
--- NOTE | 2020-01-12 15:55 | Pharmacy Report ---
Glycemic Control Consultation - Date of Service January 12, 2020 - Scope Scope: Glycemic Pharmacist consulted for glycemic control and to write orders per [facility] inpatient glycemic control protocol. - Objective Weight: 101.06 kg Accuchecks BSG (last 24hrs): 01/12/20 01/12/20 01/12/20 05:50 09:03 12:17 POC Glucose 132 H 161 H 166 H HbA1c: Hemoglobin A1c 7.1 % (4.5-5.6) H 12/17/19 15:26 - Recent Pertinent Medications Outpatient Anti-diabetic Regimen: * Metformin ER 1000 mg QAM, 500 mg * A1c = 7.1 % on 12/17/19 Risk Factors for Insulin Resistance: * Steroids: Decadron 8 mg PO preop x 1 today * Infection: Ancef 2 gm IV x 2 postop * IVF: NS @ 100 ml/hr * Recent Surgery: POD 0 L total knee replacement * Diet: T2DM - Assessment & Plan Assessment & Plan: ASSESSMENT: * 64 y/o M admitted for L TKR. Patient with history of Type 2 diabetes managed at home with oral Metformin. * Oral agents are not recommended for inpatient use d/t drug interactions, changing PO intake, and difficulty titrating for acute hyper/hypoglycemia. ADA recommends re-initiating outpatient oral agents 1-2 days prior to discharge if/when appropriate if they were held on admission. * Will hold oral agents for admission and utilize SQ basal bolus insulin regimen which is the recommended regimen for inpatient glycemic control. * Will initiate weight based insulin dosing for insulin lopez patient and titrate based on BSG trends. * Patient received decadron preop x1. To prevent steroid induced hyperglycemia, used basal NPH 0.2 units/kg (adj BW) x 1 at lunch today. * Novolog started using weight and stress between 2 and 3 for parameters. PLAN FOR INPATIENT GLYCEMIC CONTROL: * Holding outpatient oral diabetes medications * Basal insulin * NPH 17 units SQ x 1 at noon today * Bolus insulin * NovoLog per scale ACHS or Q6hrs while NPO * Goal Range: Low 110 mg/dL - High 110 mg/dL * Correction Factor: 20 mg/dL/unit * Nutritional / Prandial insulin per carb ratio of 1 unit per 7 grams CHO consumed * Please note that the plan above was derived based on current level of insulin resistance and hospital stress. These recommendations are appropriate for inpatient admission only. Plan of care upon discharge will need to be reassessed to avoid potential outpatient hypo/hyperglycemia. Thank you.
[2020-01-12] MEDS ORDERED: ATORVASTATIN 40 MG TAB PO SCH (21:00)
[2020-01-12] MEDS ORDERED: SENNA 8.6 MG TAB PO SCH (21:00)
[2020-01-13] MEDS: LEVOTHYROXINE SODIUM 175 MCG TABLET PO SCH (05:55)
[2020-01-13] MEDS: ACETAMINOPHEN 500 MG TAB PO SCH (05:55)
[2020-01-13] MEDS: KETOROLAC TROMETHAMINE 15 MG/ML VIAL IV SCH (05:56)
[2020-01-13] MEDS: SODIUM CHLORIDE 0.9% 1000ML 1,000 ML IV SCH (06:04)
[2020-01-13 06:56] LABS: Hematocrit (blood only) 36.6 % (42-52); Hemoglobin 12.9 g/dL (14.0-18.0); Mean Corpuscular Hgb Conc 35.2 g/dL (32-36); Mean Corpuscular Volume 82.2 fL (80-100); Mean Platelet Volume 9.9 fL (7.4-10.4); Platelet Count 214 K/uL (130-400); RDW Coefficient of Variation 13.9 % (11.5-14.5); RDW Standard Deviation 42.1 fL (36.4-46.3); Red Blood Count 4.45 M/uL (4.7-6.1); White Blood Count 17.93 K/uL (4.8-10.8)
[2020-01-13 07:25] LABS: Potassium 3.9 mmol/L (3.5-5.1)
[2020-01-13 07:26] LABS: BUN Creatinine Ratio 19.5 (10-20); Calcium 8.4 mg/dl (8.5-10.1); Creatinine Clr Calc Pharmacy 93.6 ml/min; Est GFR (African American) 93.9
[2020-01-13] MEDS: OXYCODONE HCL IR 5 MG TAB (IMMEDIATE RELEASE) PO PRN (07:38)
--- NOTE | 2020-01-13 07:54 | Orthopedic Progress Note ---
Date of Service January 13, 2020 Assessment & Plan (1) History of total left knee replacement: POD #1 s/p Left TKA pt/ot dvt proph with PAULINA/SCD/ASA plan for d/c home with HHPT, recheck for poss d/c after PT. will leave hemovac in to have home nursing pull tomorrow am. Admission and Anticipated Discharge Date Admission Date: January 12, 2020 Subjective POD #1 s/p Left TKA Review of Systems Constitutional: no fever, no chills and no sweats Respiratory: no cough and no dyspnea Cardiovascular: no chest pain and no dyspnea Gastrointestinal: no abdominal pain, no nausea and no vomiting Physical Exam Physical Exam: Vital Signs Temp 36.7 C 01/13/20 04:08 Pulse 95 H 01/13/20 04:08 Resp 20 01/13/20 04:08 BP 123/74 01/13/20 04:08 Pulse Ox 96 01/13/20 04:08 Intake & Output 01/12/20 01/13/20 01/13/20 18:59 06:59 18:59 Intake Total 2550 / 4893.334 2343.334 / 4893.33 4 Output Total 3530 / 6680 3150 / 6680 Balance -980 / -1786.666 -806.666 / -1786.6 66 Intake: IV 800 / 2768.334 1968.334 / 2768.33 4 Lr 1,000 ml @ 15 mls/hr IV . 600 / 600 Q24H [facility] Rx#:[id number] Nss 1000ML 1,0 00 ml @ 100 mls/ 1967.334 / 1967.33 4 hr IV .Q10H [facility] Rx#:[id number] TRANEXAMIC ACI D / 0.7% NACL 1, 200 / 200 000 mg In 100 ml @ 600 mls/hr IV TODAY@0600 [facility] Rx#:[id number] IV Perioperative 1100 / 1100 Oral 650 / 1025 375 / 1025 Output: Urine 2825 / 5425 2600 / 5425 Estimated Blood Loss 5 / 5 Drain Output 700 / 1250 550 / 1250 Left Knee Hemo vac 700 / 1250 550 / 1250 Musculoskeletal: Left Leg: NVDI, calf SNT, negative carole sign. DP palpable, able to wiggle toes/ankle movement without difficulty. dressing clean dry and intact. Results & Data ([facility]) Vital Signs (Past 12 Hours) Vital Signs Temp Pulse Resp BP Pulse Ox 01/13/20 04:08 36.7 C 95 H 20 123/74 96 01/12/20 22:57 36.8 C 86 16 120/79 97 Laboratory Results Laboratory Results WBC 17.93 K/uL (4.8-10.8) H 01/13/20 06:48 RBC 4.45 M/uL (4.7-6.1) L 01/13/20 06:48 Hgb 12.9 g/dL (14.0-18.0) L 01/13/20 06:48 Hct 36.6 % (42-52) L 01/13/20 06:48 MCV 82.2 fL (80-100) 01/13/20 06:48 MCH 29.0 pg (25-34) 01/13/20 06:48 MCHC 35.2 g/dL (32-36) 01/13/20 06:48 RDW Std Deviation 42.1 fL (36.4-46.3) 01/13/20 06:48 RDW Coeff of Bruno 13.9 % (11.5-14.5) 01/13/20 06:48 Plt Count 214 K/uL (130-400) 01/13/20 06:48 MPV 9.9 fL (7.4-10.4) 01/13/20 06:48 Immature Gran % (Auto) 0.1 % 12/17/19 15:26 Neut % (Auto) 45.4 % 12/17/19 15:26 Lymph % (Auto) 41.8 % 12/17/19 15:26 Miller % (Auto) 8.1 % 12/17/19 15:26 Eos % (Auto) 4.5 % 12/17/19 15:26 Baso % (Auto) 0.1 % 12/17/19 15:26 Immature Gran # (Auto) 0.01 K/uL (0.00-0.02) 12/17/19 15:26 Neut # (Auto) 3.04 K/uL (1.4-6.5) 12/17/19 15:26 Lymph # (Auto) 2.80 K/uL (1.2-3.4) 12/17/19 15:26 Miller # (Auto) 0.54 K/uL (0.11-0.59) 12/17/19 15:26 Eos # (Auto) 0.30 K/uL (0-0.5) 12/17/19 15:26 Baso # (Auto) 0.01 K/uL (0-0.2) 12/17/19 15:26 PT 10.4 Seconds (9.0-12.0) 12/17/19 15:26 INR 1.0 (0.9-1.1) 12/17/19 15:26 APTT 27.1 Seconds (21.0-31.0) 12/17/19 15:26 PTT Ratio 1.0 12/17/19 15:26 Sodium 136 mmol/L (136-145) 01/13/20 06:48 Potassium 3.9 mmol/L (3.5-5.1) 01/13/20 06:48 Chloride 106 mmol/L (98-107) 01/13/20 06:48 Carbon Dioxide 23 mmol/L (21-32) 01/13/20 06:48 Anion Gap 7.0 (3-11) 01/13/20 06:48 BUN 19 mg/dl (7-18) H 01/13/20 06:48 Creatinine 0.97 mg/dl (0.6-1.4) 01/13/20 06:48 Est Cr Clr Drug Dosing 93.6 ml/min 01/13/20 06:48 Est GFR ( Amer) 93.9 01/13/20 06:48 Est GFR (Non-Af Amer) 81.0 01/13/20 06:48 BUN/Creatinine Ratio 19.5 (10-20) 01/13/20 06:48 Glucose 170 mg/dl (70-99) H 01/13/20 06:48 POC Glucose 157 mg/dl (70-99) H 01/12/20 20:47 Estimat Average Glucose 157 mg/dl 12/17/19 15:26 Hemoglobin A1c 7.1 % (4.5-5.6) H 12/17/19 15:26 Calcium 8.4 mg/dl (8.5-10.1) L 01/13/20 06:48 Albumin 3.9 gm/dl (3.4-5.0) 12/17/19 15:26 Urine Color Yellow 12/17/19 Unknown Urine Appearance Clear (Clear) 12/17/19 Unknown Urine pH 6.0 (4.5-7.5) 12/17/19 Unknown Ur Specific [place] 1.020 (1.000-1.030) 12/17/19 Unknown Urine Protein Negative (Negative) 12/17/19 Unknown Urine Glucose (UA) Negative (Negative) 12/17/19 Unknown Urine Ketones Negative (Negative) 12/17/19 Unknown Urine Blood Negative (Negative) 12/17/19 Unknown Urine Nitrite Negative (Negative) 12/17/19 Unknown Urine Bilirubin Negative (Negative) 12/17/19 Unknown Urine Urobilinogen Negative (Negative) 12/17/19 Unknown Ur Leukocyte Esterase Negative (Negative) 12/17/19 Unknown Hepatitis C Ab Screen Neg (Neg) 01/12/20 05:47 Blood Type O Positive 12/17/19 15:26 Antibody Screen NEGATIVE 12/17/19 15:26 Diagnostic Findings XR knee LT 1 or 2V routine CLINICAL HISTORY: Surgical Post Op COMPARISON: None DISCUSSION: There are postsurgical changes of a total left knee arthroplasty and patellar resurfacing. The femoral tibial components appear well seated. There is an overlying surgical drain. Gas in the soft tissues consistent with recent surgery. There is bony overgrowth of the anterior tibial tuberosity. IMPRESSION: Postsurgical changes of a total left knee arthroplasty.
--- NOTE | 2020-01-13 08:34 | Anesthesiology Progress Note ---
Date of Service January 13, 2020 Anesthesia Post Procedure Vital Signs Vital Signs: Temp Pulse Pulse Resp BP Pulse Ox 01/13/20 08:22 37.0 C 87 16 130/81 96 01/13/20 04:08 36.7 C 95 H 20 123/74 96 01/12/20 22:57 36.8 C 86 16 120/79 97 01/12/20 19:45 36.8 C 91 H 18 119/69 95 01/12/20 15:40 36.8 C 81 18 121/78 95 01/12/20 11:37 36.4 C L 90 16 139/84 96 01/12/20 10:36 86 16 124/79 96 01/12/20 10:10 36.5 C 84 16 119/76 97 01/12/20 09:57 36.5 C 83 16 116/75 98 01/12/20 09:15 36.3 C L 92 H 16 123/75 97 01/12/20 09:05 87 16 118/65 97 01/12/20 08:57 36.4 C L 90 16 113/62 98 Notes Mental Status: alert / awake / arousable Nausea / Vomiting: adequately controlled Pain: adequately controlled Airway Patency, RR, SpO2: stable & adequate BP & HR: stable & adequate Hydration State: stable & adequate Neuraxial Anesthesia: was administered and sensory block resolved Anesthetic Complications: no major complications apparent and Pt Satisfied with anesthetic care
[2020-01-13] MEDS ORDERED: CALCIUM 600MG + VIT D 400 IU TAB PO SCH (09:00)
[2020-01-13] MEDS ORDERED: ASCORBIC ACID 500 MG TAB PO SCH (09:00)
[2020-01-13] MEDS ORDERED: NovoLIN-N (NPH) PER UNIT CHARGE SQ ONE (09:00)
[2020-01-13] MEDS: MULTIVITAMIN TAB PO SCH (09:06)
[2020-01-13] MEDS: AMLODIPINE BESYLATE 5 MG TAB PO SCH (09:07)
[2020-01-13] MEDS: FERROUS SULFATE 325 MG TAB PO SCH (09:07)
[2020-01-13] MEDS: ASPIRIN 81 MG ECTAB PO SCH (09:07)
[2020-01-13] MEDS: DOCUSATE SODIUM 100 MG CAP PO SCH (09:08)
[2020-01-13] MEDS: INSULIN ASPART 100 UNITS/ML 3 ML PEN SC SCH (09:15)
[2020-01-13] MEDS ORDERED: CeleBREX 200 MG CAP PO SCH (21:00)
--- NOTE | 2020-01-14 07:49 | Discharge Summary ---
Date of Service date of discharge: January 13, 2020 date of admission: 01-12-20 Admission HPI Per Admitting Provider Mr Devi is a 64 year old male who complains of left knee pain, presents for pre op eval prior to a left total knee replacement at [facility]. He presents with pain and stiffness on the left side. His symptoms occur constantly with intermittent worsening. Currently the patient states that the symptoms are moderate. The pain is described as aching and throbbing. He rates his current pain as 5/10. The symptoms are aggravated by daily activities, walking standing and stairs. unable to take NSAIDs due to recent GI Bleed. has had prior visco injections with only mild relief. Principal Diagnosis left knee osteoarthritis Discharge Exam Vital Signs Temp 37.0 C 01/13/20 09:57 Pulse 95 H 01/13/20 09:57 Resp 16 01/13/20 09:57 BP 138/86 01/13/20 09:57 Pulse Ox 96 01/13/20 09:57 Intake & Output 01/13/20 01/14/20 01/14/20 18:59 06:59 18:59 Weight 101.06 kg Constitutional WD/WN, vitals as above no acute distress Musculoskeletal left knee: NVDI, calf SNT, negative carole sign. DP palpable, able to wiggle toes/ankle movement without difficulty. Prineo clean dry and intact. expected post-operative bruising noted. Laboratory Results WBC 17.93 K/uL (4.8-10.8) H 01/13/20 06:48 RBC 4.45 M/uL (4.7-6.1) L 01/13/20 06:48 Hgb 12.9 g/dL (14.0-18.0) L 01/13/20 06:48 Hct 36.6 % (42-52) L 01/13/20 06:48 MCV 82.2 fL (80-100) 01/13/20 06:48 MCH 29.0 pg (25-34) 01/13/20 06:48 MCHC 35.2 g/dL (32-36) 01/13/20 06:48 RDW Std Deviation 42.1 fL (36.4-46.3) 01/13/20 06:48 RDW Coeff of Bruno 13.9 % (11.5-14.5) 01/13/20 06:48 Plt Count 214 K/uL (130-400) 01/13/20 06:48 MPV 9.9 fL (7.4-10.4) 01/13/20 06:48 Immature Gran % (Auto) 0.1 % 12/17/19 15:26 Neut % (Auto) 45.4 % 12/17/19 15:26 Lymph % (Auto) 41.8 % 12/17/19 15:26 Love % (Auto) 8.1 % 12/17/19 15:26 Eos % (Auto) 4.5 % 12/17/19 15:26 Baso % (Auto) 0.1 % 12/17/19 15:26 Immature Gran # (Auto) 0.01 K/uL (0.00-0.02) 12/17/19 15:26 Neut # (Auto) 3.04 K/uL (1.4-6.5) 12/17/19 15:26 Lymph # (Auto) 2.80 K/uL (1.2-3.4) 12/17/19 15:26 Love # (Auto) 0.54 K/uL (0.11-0.59) 12/17/19 15:26 Eos # (Auto) 0.30 K/uL (0-0.5) 12/17/19 15:26 Baso # (Auto) 0.01 K/uL (0-0.2) 12/17/19 15:26 PT 10.4 Seconds (9.0-12.0) 12/17/19 15:26 INR 1.0 (0.9-1.1) 12/17/19 15:26 APTT 27.1 Seconds (21.0-31.0) 12/17/19 15:26 PTT Ratio 1.0 12/17/19 15:26 Sodium 136 mmol/L (136-145) 01/13/20 06:48 Potassium 3.9 mmol/L (3.5-5.1) 01/13/20 06:48 Chloride 106 mmol/L (98-107) 01/13/20 06:48 Carbon Dioxide 23 mmol/L (21-32) 01/13/20 06:48 Anion Gap 7.0 (3-11) 01/13/20 06:48 BUN 19 mg/dl (7-18) H 01/13/20 06:48 Creatinine 0.97 mg/dl (0.6-1.4) 01/13/20 06:48 Est Cr Clr Drug Dosing 93.6 ml/min 01/13/20 06:48 Est GFR ( Amer) 93.9 01/13/20 06:48 Est GFR (Non-Af Amer) 81.0 01/13/20 06:48 BUN/Creatinine Ratio 19.5 (10-20) 01/13/20 06:48 Glucose 170 mg/dl (70-99) H 01/13/20 06:48 POC Glucose 146 mg/dl (70-99) H 01/13/20 12:08 Estimat Average Glucose 157 mg/dl 12/17/19 15:26 Hemoglobin A1c 7.1 % (4.5-5.6) H 12/17/19 15:26 Calcium 8.4 mg/dl (8.5-10.1) L 01/13/20 06:48 Albumin 3.9 gm/dl (3.4-5.0) 12/17/19 15:26 Urine Color Yellow 12/17/19 Unknown Urine Appearance Clear (Clear) 12/17/19 Unknown Urine pH 6.0 (4.5-7.5) 12/17/19 Unknown Ur Specific [place] 1.020 (1.000-1.030) 12/17/19 Unknown Urine Protein Negative (Negative) 12/17/19 Unknown Urine Glucose (UA) Negative (Negative) 12/17/19 Unknown Urine Ketones Negative (Negative) 12/17/19 Unknown Urine Blood Negative (Negative) 12/17/19 Unknown Urine Nitrite Negative (Negative) 12/17/19 Unknown Urine Bilirubin Negative (Negative) 12/17/19 Unknown Urine Urobilinogen Negative (Negative) 12/17/19 Unknown Ur Leukocyte Esterase Negative (Negative) 12/17/19 Unknown Hepatitis C Ab Screen Neg (Neg) 01/12/20 05:47 Blood Type O Positive 12/17/19 15:26 Antibody Screen NEGATIVE 12/17/19 15:26 Discharge Data Allergies Allergy/AdvReac Type Severity Reaction Status Date / Time No Known Allergies Allergy Unknown Verified 12/10/19 09:26 Consultations 01/12/20 09:44 Consult Case Management - Discharge Planning Routine 01/13/20 08:07 Consult Case Management - Discharge Planning Routine Procedures Performed Operation Date: 01/12/20 07:00 Actual Procedures p Left Total Knee Arthroplasty(Left) - Mundo Avila DO Ordered Studies 01/12/20 05:00 US - OR guided needle placemen Routine Hospital Course (1) History of total left knee replacement: POD #1 s/p Left TKA pt/ot dvt proph with PAULINA/SCD/ASA plan for d/c home with HHPT, recheck for poss d/c after PT. will leave hemovac in to have home nursing pull tomorrow am. Total Time Total Time Spent Total Time Spent (In Minutes): 20 Total Time Includes: Examination of the Patient, Discharge Planning and Medication Reconciliation Discharge Plan Discharge Items Patient Disposition: Home - Home Health Services Reason For Visit: LEFT KNEE OSTEOARTHRITIS Discharge Diagnosis: left total knee replacement Condition on Discharge: Good Activity: Per Instructions section Lifting: Wait until after follow-up appointment Exercise/Sports: Wait until after follow-up appointment Non-emergency contact: Surgeon Call non-emergency contact if: you have any medication questions, your temperature is above 101, your wound has increased redness, your wound has increased drainage and your wound pain has increased Follow-up/Referrals: La Hernandez DO [Primary Care Provider] - Diet: Regular Addtl Attending Provider Instructions: ACTIVITY RECOMMENDATIONS: SELF CARE INSTRUCTIONS AFTER TOTAL KNEE REPLACEMENT A. You may need to continue a physical therapy program after discharge from the hospital. There are several options available to you. Your doctor will assist you in selecting the best one for you. 1. An out-patient facility 2 to 3 times a week for therapy or home therapy. 2. Continue working on all exercises taught to you in the hospital. Your goals should be to increase bending of your knee to 90 degrees and beyond and to fully straighten your knee. B. You may progress at your own pace from walking with a walker or crutches to a cane; then to no assistive devices. C. Make walking a part of your daily routine. Be up as much as comfortable with rest periods throughout the day. Rest with leg elevation is very important. Use the ice wrap frequently for the first 3-4 weeks. D. There are no restrictions on activities. You may ride in a car, shop, participate in copper miner and all social activities. E. Wear the long elastic stockings (PAULINA hose) 20 hours a day for 2 weeks after surgery. They can be removed several times a day for laundering and for a bath. F. You may shower, no tub baths until cleared by your doctor. SPECIAL CARE INSTRUCTIONS: VERY IMPORTANT TO READ AND REVIEW A. There are a few signs you need to watch for after you are home. Call [facility] if you notice any of the followin. Increased severe knee pain. Some pain is expected especially when you exercise. 2. Increased swelling in your leg or knee; pain or swelling of the calf muscle in either lower leg. 3. Any fluid drainage from the incision. 4. Shortness of breath or chest pain. B. Please call [facility] at if you have any concerns or questions about your operation or recovery. The doctor or his nurse will return your call promptly. C. You must take antibiotics before dental work, bladder, bowel or other surgery. Your doctor will provide you with a permanent care to carry describing this precaution. IMPORTANT: * REMEMBER TO TAKE ASPIRIN, 81 MG, TWICE DAILY FOR 4 WEEKS UNLESS OTHERWISE DIRECTED. THIS IS YOUR BLOOD THINNER. * HIGH RISK PATIENTS MAY BE PRESCRIBED A STRONGER BLOOD THINNER. THIS WILL BE PROVIDED AT DISCHARGE. * CALL IF INCREASED PAIN, REDNESS, DRAINAGE OR FEVER GREATER THAT 101. * WEAR PAULINA HOSE 20 HOURS PER DAY FOR 2 WEEKS. * DERMABOND Prineo- This is a mesh tape dressing that is covered with glue. It should remain in place until the incision is properly healed, usually 10-14 days. This dressing is designed to naturally slough off. You may trim the excess mesh tape as it peels off. Incision may be briefly wet in a shower. Dry immediately by blotting with a clean, dry towel. Do not bath or swim until instructed by your doctor. Do not scratch, rub, or pick at the dressing. Do not apply any topical ointments or lotions until dressing is completely removed and/or instructed by your doctor. There may be a small piece of suture material at one end of your incision. Do not pull or trim this. If it is bothersome or catching on clothing, you may cover it with a band-aid. IF INCISION IS LEAKING THROUGH DRESSING, CALL THE OFFICE . FOLLOW UP VISIT: If appointment is not already scheduled: Please call [facility] to make a follow-up appointment for 2 weeks after your surgery at . Pending Studies at Discharge: No Stand-Alone Forms: My [facility], Opioid Pain Management, Smoking Cessation Medications and DC Order Prescriptions: New celecoxib [Celebrex] 200 mg Capsule 200 mg PO BID Qty: 60 RF: 0 aspirin 81 mg Tablet,Delayed Release (Dr/Ec) 81 mg PO BID 30 Days Qty: 60 RF: 0 acetaminophen 500 mg Tablet 1,000 mg PO Q8 21 Days Qty: 126 RF: 0 oxycodone 5 mg Tablet 5 - 10 mg PO Q6H PRN (Reason: pain) Qty: 30 RF: 0 docusate sodium 100 mg Capsule 100 mg PO BID 10 Days Qty: 20 RF: 0 cefadroxil 500 mg capsule 500 mg PO BID 10 Days Qty: 20 RF: 0 Continued atorvastatin 40 mg tablet 40 mg PO QPM RF: 0 levothyroxine [Levoxyl] 175 mcg tablet 175 mcg PO QAM RF: 0 amlodipine 10 mg tablet 10 mg PO QAM RF: 0 losartan-hydrochlorothiazide 50-12.5 mg tablet 1 tab PO QAM RF: 0 Calcium 600 + D(3) 600 mg calcium- 200 unit Capsule 1 cap PO QAM RF: 0 multivitamin Tablet 1 tab PO QAM RF: 0 metformin 500 mg Tablet 500 mg PO BID RF: 0 ascorbic acid (vitamin C) [Vitamin C] 1,000 mg Tablet 1,000 mg PO QAM RF: 0 ferrous sulfate 325 mg (65 mg iron) Tablet 325 mg PO QAM RF: 0 Discontinued acetaminophen-codeine [Tylenol-Codeine #3] 300-30 mg Tablet 1 tab PO BID PRN (Reason: Pain) RF: 0 Discharge Orders: Discharge Order (Routine); Ordered 01/13/20 Ordered By: Jamel Schuster/Other Patient Handouts: Long-Term Complications of Diabetes, Healthy Meals for Diabetes, Understanding Knee Replacement, Diabetes: The Benefits of Exercise, Knee Replacement Total Dc, Managing Diabetes: The A1C Test Admission Data Admit Date/Time: 01/12/20 08:54 Attending Provider: Mundo Avila Admit Provider: Mundo Avila Primary Care Provider: La Hernandez Other Interventions: Discharge Summary Assessment (RN) Last Done: 01/13/20 09:57 DC Date/Time DO NOT enter until pt leaves facility: 01/13/20 12:43
== END 2020-01-13 12:43 | disposition home health service (06) | DRG 470 ==
LOC: ASU 05:11 → 3E 08:54